=== PATIENT | male | born 1930 | race Caucasian/White ===

== ENCOUNTER 2018-01-13 12:19 | Inpatient (IN) | payer OTHER, MEDICAID, MEDICARE ==
[~2018-01-13] VITALS: Ht 167.6 cm; Wt 71.2 kg
[~2018-01-13 12:19] MED LIST: DUONSOL2 NEB; LISI-363 PO; SIMV40TA PO
[2018-01-13 12:28] VITALS: BP 124/58; PULSE 85; RESP 16; TEMP 98.5; O2SAT 96
[2018-01-13] MEDS ORDERED: SODIUM CHLOR 0.9% 1000 ML INJ 1,000 ML IV ONE (12:30)
[2018-01-13] MEDS ORDERED: PIPERACIL-TAZO 4.5 GM PREMIX 100 ML IV ONE (12:30)
[2018-01-13] MEDS ORDERED: VANCOMYCIN INJ 1,000 MG in SODIUM CHLOR 0.9% 250 ML INJ 250 ML IV ONE (12:30)
[2018-01-13] MEDS ORDERED: SIMV40TA PO (12:34)
[2018-01-13] MEDS ORDERED: IPRAAER INH (12:34)
[2018-01-13] MEDS ORDERED: LISI-515 PO (12:34)
--- NOTE | 2018-01-13 12:36 | PD ---
HPI Chief Complaint: Wound/Suture/Staple Re-Check Time Seen by Provider: 12:29 Travel History International Travel<30 days: No Contact w/Intl Traveler<30days: No Traveled to known affect area: No History of Present Illness HPI The patient is a 87-year-old male who presents to the emergency department via EMS for an infected surgical wound. The patient has a history of squamous cell carcinoma and has had previous surgeries on the right side of the face. The patient states his last surgery was over one year ago, states he had surgery performed by Dr. Titus. The patient states he is not currently undergoing chemotherapy or radiation therapy. Apparently home health wound care nurse evaluated the ear, now notes it is draining and sent him to the emergency department for possible infection. The patient is unsure if the wound has been draining for station amount of time or if the drainage is new. He denies any fever. 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 Symptoms are moderate. PFSH Past Medical History Blood Disorders: No Cancer: Yes (SKIN) Cardiovascular Problems: Yes High Cholesterol: Yes COPD: Yes Cerebrovascular Accident: No Diabetes: No Endocrine: No GERD: No Genitourinary: No Hepatitis: No Hiatal Hernia: No Hypertension: Yes Immune Disorder: No Musculoskeletal: No Neurologic: No Psychiatric: No Reproductive: No Respiratory: Yes (COPD) Myocardial Infarction: No Seizures: No Thyroid Disease: No Past Surgical History Abdominal Surgery: No Cardiac Surgery: No Ear Surgery: No Endocrine Surgery: No Eye Surgery: Yes (L CATARACT) Genitourinary Surgery: No Gynecologic Surgery: No Joint Replacement: No Neurologic Surgery: No Oral Surgery: Yes (right lower lip tumor removal, SKIN CANCER) Pacemaker: No Thoracic Surgery: No Other Surgery: Yes Social History Alcohol Use: No Tobacco Use: Yes (2/3 ppd) Substance Use: No Allergies-Medications (Allergen,Severity, Reaction): Coded Allergies: No Known Allergies (Verified , 07/08/15) Reported Meds & Prescriptions Reported Meds & Active Scripts Active Reported Combivent Respimat Inh (Ipratropium-Albuterol Inh) 20-100 Correction/Act Aero 1 Puff INH QID Simvastatin 40 Mg Tab 40 Mg PO HS Lisinopril 20 Mg Tab 20 Mg PO DAILY Review of Systems Except as stated in HPI: all other systems reviewed are Neg General / Constitutional: No: Fever HENT: Positive: Headaches Cardiovascular: No: Chest Pain or Discomfort Respiratory: No: Shortness of Breath Gastrointestinal: No: Nausea, Vomiting, Abdominal Pain Musculoskeletal: No: Myalgias, Arthralgias Physical Exam Narrative GENERAL: Awake, alert, 87-year-old male who appears his stated age and is in no acute respiratory distress. SKIN: Skin changes noted over the right eye as well as over the right temporal parietal area and right ear with significant yellow drainage from the open right ear wound. HEAD: Visible changes from previous scar and surgery affecting the right ear and right periorbital area.. EYES: Left pupil is 4 mm and reactive. Right eye has gross overlying the affected area. ENT: Surgical changes noted to the right side of face and mouth. NECK: Trachea midline. No JVD. CARDIOVASCULAR: Regular rate and rhythm. No murmur appreciated. RESPIRATORY: No accessory muscle use. Clear to auscultation. Breath sounds equal bilaterally. GASTROINTESTINAL: Abdomen soft, non-tender, nondistended. No rebound tenderness. MUSCULOSKELETAL: No obvious deformities. No clubbing. No cyanosis. No edema. NEUROLOGICAL: Awake and alert. No obvious cranial nerve deficits. Motor grossly within normal limits. Normal speech. PSYCHIATRIC: Appropriate mood and affect; insight and judgment normal. Data Data Last Documented VS Vital Signs Date Time Temp Pulse Resp B/P (MAP) Pulse Ox O2 Delivery O2 Flow Rate FiO2 01/13/18 14:24 98.0 72 16 152/71 (98) 99 Orders Orders Complete Blood Count With Diff (01/13/18 12:29) Comprehensive Metabolic Panel (01/13/18 12:29) Westergren Sedimentation Rate (01/13/18 12:29) C-Reactive Protein (Crp) (01/13/18 12:29) Blood Culture (01/13/18 12:29) Lactic Acid (01/13/18 12:29) Sodium Chlor 0.9% 1000 Ml Inj (Ns 1000 M (01/13/18 12:30) Vancomycin Inj (Vancomycin Inj) (01/13/18 12:30) Piperacil-Tazo 4.5 Gm Premix (Zosyn 4.5 (01/13/18 12:30) Ct Brain W/O Iv Contrast(Rout) (01/13/18 ) Admit Order (Ed Use Only) (2/18/18 14:59) Labs Laboratory Tests Test 01/13/18 12:30 White Blood Count 9.7 TH/MM3 Red Blood Count 3.35 MIL/MM3 Hemoglobin 10.3 GM/DL Hematocrit 30.5 % Mean Corpuscular Volume 91.2 FL Mean Corpuscular Hemoglobin 30.7 PG Mean Corpuscular Hemoglobin Concent 33.6 % Red Cell Distribution Width 13.6 % Platelet Count 435 TH/MM3 Mean Platelet Volume 7.5 FL Neutrophils (%) (Auto) 80.5 % Lymphocytes (%) (Auto) 11.0 % Monocytes (%) (Auto) 7.8 % Eosinophils (%) (Auto) 0.4 % Basophils (%) (Auto) 0.3 % Neutrophils # (Auto) 7.8 TH/MM3 Lymphocytes # (Auto) 1.1 TH/MM3 Monocytes # (Auto) 0.8 TH/MM3 Eosinophils # (Auto) 0.0 TH/MM3 Basophils # (Auto) 0.0 TH/MM3 CBC Comment DIFF FINAL Differential Comment Erythrocyte Sedimentation Rate GREATER THAN 140 mm/hr Blood Urea Nitrogen 27 MG/DL Creatinine 2.39 MG/DL Random Glucose 103 MG/DL Total Protein 7.8 GM/DL Albumin 2.4 GM/DL Calcium Level 8.8 MG/DL Alkaline Phosphatase 101 U/L Aspartate Amino Transf (AST/SGOT) 17 U/L Alanine Aminotransferase (ALT/SGPT) 21 U/L Total Bilirubin 0.5 MG/DL Sodium Level 141 MEQ/L Potassium Level 3.9 MEQ/L Chloride Level 111 MEQ/L Carbon Dioxide Level 21.6 MEQ/L Anion Gap 8 MEQ/L Estimat Glomerular Filtration Rate 26 ML/MIN Lactic Acid Level 1.3 mmol/L C-Reactive Protein 14.00 MG/DL [facility] Medical Decision Making Medical Screen Exam Complete: Yes Emergency Medical Condition: Yes Medical Record Reviewed: Yes Interpretation(s) Laboratory Tests Test 01/13/18 12:30 White Blood Count 9.7 TH/MM3 Red Blood Count 3.35 MIL/MM3 Hemoglobin 10.3 GM/DL Hematocrit 30.5 % Mean Corpuscular Volume 91.2 FL Mean Corpuscular Hemoglobin 30.7 PG Mean Corpuscular Hemoglobin Concent 33.6 % Red Cell Distribution Width 13.6 % Platelet Count 435 TH/MM3 Mean Platelet Volume 7.5 FL Neutrophils (%) (Auto) 80.5 % Lymphocytes (%) (Auto) 11.0 % Monocytes (%) (Auto) 7.8 % Eosinophils (%) (Auto) 0.4 % Basophils (%) (Auto) 0.3 % Neutrophils # (Auto) 7.8 TH/MM3 Lymphocytes # (Auto) 1.1 TH/MM3 Monocytes # (Auto) 0.8 TH/MM3 Eosinophils # (Auto) 0.0 TH/MM3 Basophils # (Auto) 0.0 TH/MM3 CBC Comment DIFF FINAL Differential Comment Erythrocyte Sedimentation Rate GREATER THAN 140 mm/hr Blood Urea Nitrogen 27 MG/DL Creatinine 2.39 MG/DL Random Glucose 103 MG/DL Total Protein 7.8 GM/DL Albumin 2.4 GM/DL Calcium Level 8.8 MG/DL Alkaline Phosphatase 101 U/L Aspartate Amino Transf (AST/SGOT) 17 U/L Alanine Aminotransferase (ALT/SGPT) 21 U/L Total Bilirubin 0.5 MG/DL Sodium Level 141 MEQ/L Potassium Level 3.9 MEQ/L Chloride Level 111 MEQ/L Carbon Dioxide Level 21.6 MEQ/L Anion Gap 8 MEQ/L Estimat Glomerular Filtration Rate 26 ML/MIN Lactic Acid Level 1.3 mmol/L C-Reactive Protein 14.00 MG/DL Differential Diagnosis Differential diagnosis includes advanced squamous cell carcinoma, osteomyelitis , mastoiditis, cellulitis, infected wound. Narrative Course IV was established, labs are drawn and sent, and the patient was placed on cardiac telemetry monitoring and continuous pulse oximetry monitoring. CT of the brain was ordered to evaluate for possible osteomyelitis the right parietal temporal bones. The patient was administered vancomycin and Zosyn. Lactic acid blood culture were sent to lab. White count is unremarkable. Sedimentation rate greater than 140. CRP is 14. Unsure if the patient has metastasis to the bone versus ostomy colitis with secondary infection. The patient was unable to lie supine secondary to shortness of breath from COPD. The patient has been evaluated by the physician at [employer] as well as clinical reimbursement specialist, both who recommended he come the emergency department for further evaluation. The patient has not had radiation therapy to the affected area. The patient may benefit from plastic surgery evaluation as well as radiation therapy for the patient squamous cell carcinoma possible underlying infection. The [facility] [employer] Physician Communication [facility]. I discussed the patient Dr. Gregg who agrees with admission. Diagnosis Primary Impression: Infected wound Additional Impression: Squamous cell carcinoma of skin of cheek Admitting Information Admitting Physician Requests: Admit Condition: Stable Gerardo Villar MD Jan 13, 2018 12:36
[2018-01-13 12:54] LABS: AUTOMATED NEUTROPHIL # 7.8 TH/MM3 (1.8-7.7); BASOPHIL % 0.3 % (0.0-2.0); EOSINOPHIL % 0.4 % (0.0-4.0); HEMATOCRIT 30.5 % (39.0-51.0); HEMOGLOBIN 10.3 GM/DL (13.0-17.0); LYMPHOCYTE # 1.1 TH/MM3 (1.0-4.8); MEAN CELL VOLUME 91.2 FL (80.0-100.0); MEAN CORPUSCULAR HEMOGLOBIN 30.7 PG (27.0-34.0); MEAN CORPUSCULAR HGB CONC 33.6 % (32.0-36.0); MEAN PLATELET VOLUME 7.5 FL (7.0-11.0); MONO % 7.8 % (0.0-8.0); MONOCYTE # 0.8 TH/MM3 (0-0.9); NEUT % 80.5 % (16.0-70.0); PLATELET COUNT 435 TH/MM3 (150-450); RED BLOOD COUNT 3.35 MIL/MM3 (4.50-5.90); RED CELL DISTRIBUTION WIDTH 13.6 % (11.6-17.2); WHITE BLOOD COUNT 9.7 TH/MM3 (4.0-11.0)
[2018-01-13 13:16] LABS: ALBUMIN 2.4 GM/DL (3.4-5.0); AST (GOT) 17 U/L (15-37); BICARBONATE 21.6 MEQ/L (21.0-32.0); BLOOD UREA NITROGEN 27 MG/DL (7-18); CALCIUM 8.8 MG/DL (8.5-10.1); CHLORIDE 111 MEQ/L (98-107); CREATININE 2.39 MG/DL (0.60-1.30); GLOMERULAR FILTRATION RATE 26 ML/MIN (>89); GLUCOSE,RANDOM 103 MG/DL (74-106); SODIUM (NA) 141 MEQ/L (136-145)
[2018-01-13 13:17] LABS: ALT (GPT) 21 U/L (12-78)
[2018-01-13 13:19] LABS: ALKALINE PHOSPHATASE 101 U/L (45-117); TOTAL BILIRUBIN ADULT 0.5 MG/DL (0.2-1.0); TOTAL PROTEIN 7.8 GM/DL (6.4-8.2)
[2018-01-13 14:24] VITALS: BP 152/71; PULSE 72; RESP 16; TEMP 98; O2SAT 99
--- NOTE | 2018-01-13 15:12 | HHI.HP ---
[facility] Unknown Admission Diagnosis Infected wound with dehiscence of right ear, rule out osteomyelitis Diagnoses: Travel History International Travel<30 Days: No Contact w/Intl Traveler <30 Da: No Traveled to Known Affected Are: No History of Present Illness The patient is a pleasant 87 year old male with a history of basal cell carcinoma of the face who presented to the ER as recommended by his PCP at the [place] for evaluation of right ear wound with dehiscence. He is somewhat of a poor historian in recalling the history of his skin cancer but states that several years ago he had 2-[address] Darnell for facial reconstruction after excising a basal cell that involved his right eye and part of his nose and mouth. He states shortly after he had a biopsy of a lesion on his right ear that ended up being basal cell again but he never followed up. It is unclear when it progressed and spread but he has been receiving wound care at home twice weekly for it. Per the patient, he sees his PCP every three months and states he has never been treated for any infection of his ear. He doesn't recall his ear ever being addressed yet he was getting wound care for it. He denies any subjective fever, chills, headaches, neck pain or stiffness, hoarseness, or discomfort. He is hard of hearing at baseline and is blind out of his right eye due to prior cancer. *Of note, patient kept referring to it as basal cell but review of EMR reveals that in the past his prior biopsy showed invasive poorly differentiated squamous cell carcinoma Review of Systems Constitutional: DENIES: Fatigue, Fever, Chills, Dizziness Eyes: COMPLAINS OF: Vision loss (R eye), DENIES: Blurred vision, Diplopia, Eye pain, Photosensitivity Ears, nose, mouth, throat: DENIES: Vertigo, Nasal discharge, Throat pain, Ear Pain, Epistaxis, Sinus Pain Respiratory: COMPLAINS OF: Cough, Wheezing, Shortness of breath, DENIES: Hemoptysis Cardiovascular: DENIES: Chest pain, Palpitations, Syncope Gastrointestinal: DENIES: Abdominal pain, Black stools, Bloody stools, Diarrhea , Nausea, Vomiting Genitourinary: DENIES: Dysuria Musculoskeletal: DENIES: Back pain, Neck pain Integumentary: DENIES: Pruritus Hematologic/lymphatic: DENIES: Bruising Neurologic: DENIES: Headache, Paresthesias, Speech Problems Psychiatric: DENIES: Anxiety, Confusion Past Family Social History Past Medical History COPD HLD HTN Aortic aneurysm Past Surgical History Right facial squamous cell carcinoma excision with facial reconstruction 2013 Unknown abdominal surgery as a [age] year old Reported Medications Combivent Respimat Inh (Ipratropium-Albuterol Inh) 20-100 Penitentiary/Act Aero 1 Puff INH QID Simvastatin 40 Mg Tab 40 Mg PO HS Lisinopril 20 Mg Tab 20 Mg PO DAILY Allergies: Coded Allergies: No Known Allergies (Verified Allergy, Unknown, 01/13/18) Active Ordered Medications Albuterol Sulfate (Proair Hfa Inh) 2 puff QID INH; Start 01/13/18 at 18:00 Bisacodyl (Dulcolax Supp) 10 mg DAILY PRN RECTAL; Start 01/13/18 at 15:30 Heparin Sodium (Porcine) (Heparin Inj) 5,000 units Q12H SQ; Start 01/13/18 at 15 :30; Status UNV Lisinopril (Prinivil) 20 mg DAILY PO; Start 01/14/18 at 09:00 Magnesium Hydroxide (Milk Of Magnlakhwinder Liq) 30 ml Q12H PRN PO; Start 01/13/18 at 15:30; Status UNV Naloxone HCl (Narcan Inj) 0.4 mg UNSCH PRN IV PUSH; Start 01/13/18 at 15:30; Status UNV Piperacillin Sod/ Tazobactam Sod 100 ml @ 200 mls/hr ONCE ONCE IV Last administered on 01/13/18at 12:34; Admin Dose 200 MLS/HR; Start 01/13/18 at 12:30 ; Stop 01/13/18 at 12:59; Status DC Pravastatin Sodium (Pravachol) 80 mg HS PO; Start 01/13/18 at 21:00 Senna/Docusate Sodium (Rubi-Colace) 1 tab BID PO; Start 01/13/18 at 21:00 Sennosides (Senokot) 17.2 mg Q12H PRN PO; Start 01/13/18 at 15:30; Status UNV Sodium Chloride 1,000 ml @ 999 mls/hr BOLUS ONCE IV Last administered on at 12:34; Admin Dose 999 MLS/HR; Start 01/13/18 at 12:30; Stop 01/13/18 at 13: 30; Status DC Sodium Chloride (NS Flush) 2 ml BID IV FLUSH; Start 01/13/18 at 21:00; Status UNV Sodium Chloride (NS Flush) 2 ml UNSCH PRN IV FLUSH; Start 01/13/18 at 15:30; Status UNV Tiotropium Austin (Spiriva Inh) 18 mcg DAILY INH; Start 01/13/18 at 15:45 Vancomycin HCl 1000 mg/Sodium Chloride 250 ml @ 250 mls/hr ONCE ONCE IV Last administered on 01/13/18at 13:29; Admin Dose 250 MLS/HR; Start 01/13/18 at 12:30 ; Stop 01/13/18 at 13:29; Status DC Family History Noncontributory Social History Lives alone Was in the army EtOH: denies Tobacco: quit 4-5 years ago, prior smoked 1PPD x 60 years Illicit drugs: denies Physical Exam Vital Signs Vital Signs Date Time Temp Pulse Resp B/P (MAP) Pulse Ox O2 Delivery O2 Flow Rate FiO2 01/13/18 14:24 98.0 72 16 152/71 (98) 99 01/13/18 12:28 98.5 85 16 124/58 (80) 96 Physical Exam GENERAL: Well-nourished, well-developed pleasant elderly male sitting up in bed in no acute distress. SKIN: Solar keratosis over chest with multiple lentigines over extremities, chest, and back. Multiple seborrheic keratoses over back. HEENT: Significant seborrhea of scalp and face. Deformed right half of his face due to prior surgeries. Large, pedunculated fleshy mass overlying right orbit. Part of nose and mouth surgically absent. Right ear grossly deformed and dehisced with foul-smelling exudate coming from the tympanic canal. Left pupil pinpoint and reactive with normal extraocular movements. No scleral icterus. No injection or drainage. Nose without bleeding, purulent drainage or septal hematoma. Throat without erythema, tonsillar hypertrophy or exudate. Airway patent. NECK: Small posterior auricular and submandibular lymphadenopathy. No JVD. CARDIOVASCULAR: Regular rate and rhythm without murmurs, gallops, or rubs. RESPIRATORY: Clear to auscultation. Breath sounds equal bilaterally. No wheezes , rales, or rhonchi. GASTROINTESTINAL: Abdomen soft, non-tender, nondistended. No hepatosplenomegaly or palpable masses. No guarding or rebound. MUSCULOSKELETAL: Extremities without clubbing, cyanosis, or edema. No joint tenderness, effusion, or edema noted. No calf tenderness. Negative Homans sign bilaterally. NEUROLOGICAL: Awake and alert. Motor and sensory grossly within normal limits. Five out of 5 muscle strength in all muscle groups. Normal speech. PSYCHIATRIC: Appropriate mood and affect. Laboratory Laboratory Tests Test 01/13/18 12:30 White Blood Count 9.7 Red Blood Count 3.35 Hemoglobin 10.3 Hematocrit 30.5 Mean Corpuscular Volume 91.2 Mean Corpuscular Hemoglobin 30.7 Mean Corpuscular Hemoglobin Concent 33.6 Red Cell Distribution Width 13.6 Platelet Count 435 Mean Platelet Volume 7.5 Neutrophils (%) (Auto) 80.5 Lymphocytes (%) (Auto) 11.0 Monocytes (%) (Auto) 7.8 Eosinophils (%) (Auto) 0.4 Basophils (%) (Auto) 0.3 Neutrophils # (Auto) 7.8 Lymphocytes # (Auto) 1.1 Monocytes # (Auto) 0.8 Eosinophils # (Auto) 0.0 Basophils # (Auto) 0.0 CBC Comment DIFF FINAL Differential Comment Erythrocyte Sedimentation Rate GREATER THAN 140 Blood Urea Nitrogen 27 Creatinine 2.39 Random Glucose 103 Total Protein 7.8 Albumin 2.4 Calcium Level 8.8 Alkaline Phosphatase 101 Aspartate Amino Transf (AST/SGOT) 17 Alanine Aminotransferase (ALT/SGPT) 21 Total Bilirubin 0.5 Sodium Level 141 Potassium Level 3.9 Chloride Level 111 Carbon Dioxide Level 21.6 Anion Gap 8 Estimat Glomerular Filtration Rate 26 Lactic Acid Level 1.3 C-Reactive Protein 14.00 Date/Time Source Procedure Growth Status 01/13/18 12:35 Blood Peripheral Aerobic Blood Culture Pending Received 01/13/18 12:35 Blood Peripheral Anaerobic Blood Culture Pending Received Result Diagram: 01/13/18 1230 01/13/18 1230 Caprini VTE Risk Assessment Caprini VTE Risk Assessment: Mod/High Risk (score >= 2) Caprini Risk Assessment Model Point Value = 1 Point Value = 2 Point Value = 3 Point Value = 5 Age 41-60 Minor surgery BMI > 25 kg/m2 Swollen legs Varicose veins or History of unexplained or recurrent spontaneous Oral contraceptives or hormone replacement Sepsis (< 1 month) Serious lung disease, including pneumonia (< 1 month) Abnormal pulmonary function Acute myocardial infarction Congestive heart failure (< 1 month) History of inflammatory bowel disease Medical patient at bed rest Age 61-74 Arthroscopic surgery Major open surgery (> 45 min) Laparoscopic surgery (> 45 min) Malignancy Confined to bed (> 72 hours) Immobilizing plaster cast Central venous access Age >= 75 History of VTE Family history of VTE Factor V Leiden Prothrombin [id number] Lupus anticoagulant Anticardiolipin antibodies Elevated serum homocysteine Heparin-induced thrombocytopenia Other congenital or acquired thrombophilia Stroke (< 1 month) Elective arthroplasty Hip, pelvis, or leg fracture Acute spinal cord injury (< 1 month) Prophylaxis Regimen Total Risk Factor Score Risk Level Prophylaxis Regimen 0-1 Low Early ambulation 2 Moderate Order ONE of the following: *Sequential Compression Device (SCD) *Heparin 5000 units SQ BID 3-4 Higher Order ONE of the following medications: *Heparin 5000 units SQ TID *Enoxaparin/Lovenox 40 mg SQ daily (WT < 150 kg, CrCl > 30 mL/min) *Enoxaparin/Lovenox 30 mg SQ daily (WT < 150 kg, CrCl > 10-29 mL/min) *Enoxaparin/Lovenox 30 mg SQ BID (WT < 150 kg, CrCl > 30 mL/min) AND/OR *Sequential Compression Device (SCD) 5 or more Highest Order ONE of the following medications: *Heparin 5000 units SQ TID (Preferred with Epidurals) *Enoxaparin/Lovenox 40 mg SQ daily (WT < 150 kg, CrCl > 30 mL/min) *Enoxaparin/Lovenox 30 mg SQ daily (WT < 150 kg, CrCl > 10-29 mL/min) *Enoxaparin/Lovenox 30 mg SQ BID (WT < 150 kg, CrCl > 30 mL/min) AND *Sequential Compression Device (SCD) Assessment and Plan Problem List: (1) Infection of right ear ICD Code: H66.91 - Otitis media, unspecified, right ear (2) Necrosis of right external ear ICD Code: I96 - Gangrene, not elsewhere classified (3) Chronic kidney disease ICD Code: N18.9 - Chronic kidney disease, unspecified Status: Chronic (4) Anemia ICD Code: D64.9 - Anemia, unspecified Assessment and Plan 87 year old male with presenting with right ear wound with necrosis and dehiscence suspected to be from underlying invasive skin cancer. Infection of right ear with necrosis Likely secondary to invasive skin cancer that has been untreated for years Concern for merna involvement and possible osteomyelitis given purulent, foul- smelling drainage CT head attempted but patient with significant dyspnea when supine due to COPD ( even with supplemental oxygen) ESR markedly elevated >140 and CRP 14 No leukocytosis and not septic IV Vanc and Zosyn x 1 given in the ED Since this is likely a chronic process and the patient is currently stable, will hold off on continuing antibiotics if further tissue collection needs to be done, i.e. bone debridement Wound and blood cultures drawn Monitor sed rate Consult plastic surgery and infectious disease COPD Not in acute exacerbation Supplemental O2 PRN Resume home Symbicort HTN Hold home Lisinopril secondary to renal disease Clonidine PRN Monitor pressures - if necessary can add a CCB CKD Baseline creatinine ~1.5 but that was back in 2013 so unsure if this is progressing chronic or acute on chronic Avoid nephrotoxic agents Monitor renal function Anemia Normocytic, no active bleeding and hemodynamically stable Likely secondary to CKD Check iron studies Monitor CBC HLD Resume home statin DVT prophylaxis Heparin 5000 units Q8H Hold if invasive procedure anticipated FEN Regular diet Monitor electrolytes Code Status DNR Discussed Condition With Dr. Villar and patient Physician Certification 2 Midnight Certification Type: Admission for Inpatient Services Order for Inpatient Services The services are ordered in accordance with Medicare regulations or non- Medicare payer requirements, as applicable. In the case of services not specified as inpatient-only, they are appropriately provided as inpatient services in accordance with the 2-midnight benchmark. Estimated LOS (days): 4 4 days is the estimated time the patient will need to remain in the hospital, assuming treatment plan goals are met and no additional complications. Post-Hospital Plan: Not yet determined Problem Qualifiers (1) Anemia: Qualified Codes: D64.9 - Anemia, unspecified Tahira Gregg MD Jan 13, 2018 15:12
[2018-01-13] MEDS ORDERED: SODIUM CHLORIDE 0.9% FLUSH 10 ML FLUSH IV FLUSH PRN (15:30)
[2018-01-13] MEDS ORDERED: NALOXONE HCL 0.4 MG/ML AMP IV PUSH PRN (15:30)
[2018-01-13] MEDS ORDERED: SENNOSIDES 8.6 MG TAB PO PRN (15:30)
[2018-01-13] MEDS ORDERED: MAGNESIUM HYDROXIDE SUSP 30 ML CUP PO PRN (15:30)
[2018-01-13] MEDS ORDERED: BISACODYL 10 MG SUPP RECTAL PRN (15:30)
[2018-01-13 15:51] VITALS: BP 148/81; TEMP 97.8
[2018-01-13] MEDS ORDERED: ONDANSETRON HCL 4 MG/2 ML VIAL IV PUSH PRN (16:15)
[2018-01-13] MEDS ORDERED: ACETAMINOPHEN 325 MG TAB PO PRN (16:15)
[2018-01-13] MEDS ORDERED: cloNIDine HCL 0.1 MG TAB PO PRN (16:15)
[2018-01-13 16:30] VITALS: BP 145/65; PULSE 83; RESP 18; TEMP 97.1; O2SAT 96
[2018-01-13] MEDS: ALBUTEROL SULFATE 90 MCG/ACT HFA 8 GM INHALER INH SCH ×2 (17:22→21:31)
[2018-01-13] MEDS: TIOTROPIUM BROMIDE 18 MCG INH INH SCH (17:22)
[2018-01-13 20:00] VITALS: BP 138/69; PULSE 87; RESP 20; TEMP 96.8; O2SAT 95
[2018-01-13] MEDS ORDERED: HEPARIN SODIUM - SQ 10,000 UNITS/ML VIAL SQ SCH (21:00)
[2018-01-13] MEDS: PRAVASTATIN SOD 80 MG TAB PO SCH (21:30)
[2018-01-13] MEDS: SODIUM CHLORIDE 0.9% FLUSH 10 ML FLUSH IV FLUSH SCH (21:31)
[2018-01-13] MEDS: DOCUSATE SODIUM 50 MG/SENNA 8.6 MG TAB PO SCH (21:31)
[2018-01-13] MEDS: HEPARIN SODIUM - SQ 10,000 UNITS/ML VIAL SQ SCH (21:37)
[2018-01-14] VITALS: BP 134/69; PULSE 80; RESP 20; TEMP 97.5; O2SAT 96
[2018-01-14] MEDS: HEPARIN SODIUM - SQ 10,000 UNITS/ML VIAL SQ SCH ×3 (05:43→22:00)
[2018-01-14 08:00] VITALS: BP 143/73; PULSE 81; RESP 19; TEMP 95.9; O2SAT 98
[2018-01-14] MEDS ORDERED: LISINOPRIL 20 MG TAB PO SCH (09:00)
[2018-01-14] MEDS: DOCUSATE SODIUM 50 MG/SENNA 8.6 MG TAB PO SCH ×2 (09:00→21:00)
[2018-01-14] MEDS: SODIUM CHLORIDE 0.9% FLUSH 10 ML FLUSH IV FLUSH SCH (09:00)
[2018-01-14] MEDS: ALBUTEROL SULFATE 90 MCG/ACT HFA 8 GM INHALER INH SCH ×3 (09:00→17:09)
[2018-01-14] MEDS: TIOTROPIUM BROMIDE 18 MCG INH INH SCH (09:00)
--- NOTE | 2018-01-14 09:09 | HHI.PR ---
Subjective Remarks Pt seen and examined this morning. AFVSS. No acute events overnight. Reports he is feeling well. Denies any pain. Breathing is at his baseline. Refuses to lay flat for imaging and apologizes for it but states he cannot breathe when supine. Feels hungry and wants to eat breakfast. No CP, N/V. Objective Vitals Vital Signs Date Time Temp Pulse Resp B/P (MAP) Pulse Ox O2 Delivery O2 Flow Rate FiO2 01/14/18 08:00 95.9 81 19 143/73 (96) 98 01/14/18 00:00 97.5 80 20 134/69 (90) 96 01/13/18 20:00 96.8 87 20 138/69 (92) 95 01/13/18 16:30 97.1 83 18 145/65 (91) 96 01/13/18 15:51 97.8 76 17 148/81 (103) 98 01/13/18 14:24 98.0 72 16 152/71 (98) 99 01/13/18 12:28 98.5 85 16 124/58 (80) 96 I/O 01/13/18 01/13/18 01/13/18 01/14/18 01/14/18 01/14/18 07:00 15:00 23:00 07:00 15:00 23:00 Intake Total 1350 ml 500 ml Output Total 200 ml 2600 ml Balance 1350 ml -200 ml -2100 ml Intake Oral 500 ml IV Total 1350 ml Output Urine Total 200 ml 2600 ml Result Diagram: 01/13/18 1230 01/13/18 1230 Objective Remarks GENERAL: WN, WD male sitting up comfortably in bed in [facility]. SKIN: Warm and dry. HEENT: Significant seborrhea of scalp and face. Deformed right half of his face due to prior surgeries. Large, pedunculated fleshy mass overlying right orbit. Part of nose and mouth surgically absent. Right ear grossly deformed and dehisced with foul-smelling exudate coming from the tympanic canal. No scleral icterus. No injection or drainage. Nose without bleeding, purulent drainage or septal hematoma. NECK: Supple no tender LAD or JVD. HEART: RRR no m/r/g. LUNGS: CTAB without wheezes or crackles. ABDOMEN: Soft, NT, ND. EXTREMITIES: No LE edema or calf tenderness. NEURO: Awake and alert. PSYCH: Appropriate mood and affect. A/P Problem List: (1) Infection of right ear ICD Code: H66.91 - Otitis media, unspecified, right ear (2) Necrosis of right external ear ICD Code: I96 - Gangrene, not elsewhere classified (3) Chronic kidney disease ICD Code: N18.9 - Chronic kidney disease, unspecified Status: Chronic (4) Anemia ICD Code: D64.9 - Anemia, unspecified Assessment and Plan 87 year old male with presenting with right ear wound with necrosis and dehiscence suspected to be from underlying invasive skin cancer. Infection of right ear with necrosis Likely secondary to invasive skin cancer that has been untreated for years Concern for merna involvement and possible osteomyelitis given purulent, foul- smelling drainage and proximity to mastoid, ossicles, etc. CT head attempted but patient with significant dyspnea when supine due to COPD ( even with supplemental oxygen) ESR markedly elevated >140 and CRP 14 No leukocytosis and not septic IV Vanc and Zosyn x 1 given in the ED Since this is likely a chronic process and the patient is currently stable, will hold off on continuing antibiotics if further tissue collection needs to be done prior, i.e. bone debridement Wound and blood cultures pending Monitor sed rate Consulted plastic surgery and infectious disease, will follow recommendations COPD Not in acute exacerbation Supplemental O2 PRN Resume home Symbicort DuoNeb PRN HTN Hold home Lisinopril secondary to renal disease Clonidine PRN Monitor pressures - if necessary can add a CCB CKD Baseline creatinine ~1.5 but that was back in 2013 so unsure if this is progressing chronic or acute on chronic Avoid nephrotoxic agents Monitor renal function Anemia Normocytic, no active bleeding and hemodynamically stable Likely secondary to CKD Iron studies ordered Monitor CBC HLD Resume home statin DVT prophylaxis Heparin 5000 units Q8H Hold if invasive procedure anticipated FEN Regular diet Monitor electrolytes Problem Qualifiers (1) Anemia: Qualified Codes: D64.9 - Anemia, unspecified Tahira Gregg MD Jan 14, 2018 09:09
[2018-01-14] MEDS ORDERED: RESP: ALBUTEROL 2.5 MG/IPRATROPIUM 0.5 MG NEB (PRN) NEB (09:15)
[2018-01-14 12:00] VITALS: BP 141/67; PULSE 81; RESP 19; TEMP 97.1; O2SAT 96
[2018-01-14 13:29] LABS: AUTOMATED NEUTROPHIL # 7.9 TH/MM3 (1.8-7.7); BASOPHIL # 0.1 TH/MM3 (0-0.2); BASOPHIL % 0.7 % (0.0-2.0); EOSINOPHIL # 0.1 TH/MM3 (0-0.4); EOSINOPHIL % 0.8 % (0.0-4.0); HEMATOCRIT 30.4 % (39.0-51.0); HEMOGLOBIN 10.1 GM/DL (13.0-17.0); LYMPH % 12.9 % (9.0-44.0); LYMPHOCYTE # 1.3 TH/MM3 (1.0-4.8); MEAN CELL VOLUME 90.9 FL (80.0-100.0); MEAN CORPUSCULAR HEMOGLOBIN 30.2 PG (27.0-34.0); MEAN CORPUSCULAR HGB CONC 33.2 % (32.0-36.0); MEAN PLATELET VOLUME 7.6 FL (7.0-11.0); MONOCYTE # 0.6 TH/MM3 (0-0.9); NEUT % 79.6 % (16.0-70.0); PLATELET COUNT 476 TH/MM3 (150-450); RED BLOOD COUNT 3.35 MIL/MM3 (4.50-5.90); RED CELL DISTRIBUTION WIDTH 13.5 % (11.6-17.2)
[2018-01-14 14:15] LABS: FERRITIN 703 NG/ML (26-388); TOTAL IRON BINDING CAPACITY 162 MCG/DL (250-450)
[2018-01-14 14:23] LABS: BLOOD UREA NITROGEN 26 MG/DL (7-18); CALCIUM 9.2 MG/DL (8.5-10.1); CHLORIDE 110 MEQ/L (98-107); CREATININE 2.22 MG/DL (0.60-1.30); GLOMERULAR FILTRATION RATE 28 ML/MIN (>89); GLUCOSE,RANDOM 107 MG/DL (74-106); SODIUM (NA) 142 MEQ/L (136-145)
[2018-01-14 14:25] LABS: IRON (FE) 39 MCG/DL (65-175)
--- NOTE | 2018-01-14 14:57 | PD.CONS ---
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 Patient reports that this is a basal cell carcinoma, though patient seems to be a poor historian. Patient reports this is a long- standing wound of his right ear. Past Medical History COPD HLD HTN Aortic aneurysm Past Surgical History Right facial squamous cell carcinoma excision Unknown abdominal surgery as a [age] year old Reported Medications Combivent Respimat Inh (Ipratropium-Albuterol Inh) 20-100 Custodial/Act Aero 1 Puff INH QID Simvastatin 40 Mg Tab 40 Mg PO HS Lisinopril 20 Mg Tab 20 Mg PO DAILY Allergies: Coded Allergies: No Known Allergies (Verified Allergy, Unknown, 01/13/18) Review of Systems Denies lymphadenopathy. Review of systems otherwise noncontributory to presenting complaint Past Family Social History Allergies: Coded Allergies: No Known Allergies (Verified Allergy, Unknown, 01/13/18) Physical Exam Vital Signs Vital Signs Date Time Temp Pulse Resp B/P (MAP) Pulse Ox O2 Delivery O2 Flow Rate FiO2 01/14/18 12:00 97.1 81 19 141/67 (91) 96 01/14/18 08:00 95.9 81 19 143/73 (96) 98 01/14/18 00:00 97.5 80 20 134/69 (90) 96 01/13/18 20:00 96.8 87 20 138/69 (92) 95 01/13/18 16:30 97.1 83 18 145/65 (91) 96 01/13/18 15:51 97.8 76 17 148/81 (103) 98 Physical Exam No acute distress Alert and oriented 3 Moist mucous membranes PERRLA Respirations nonlabored Patient has scars consistent with multiple previous resections involving his right eyelid right commissure and bilateral face. The patient's year has a 10-15 cm ulcerated lesion encompassing the superior two thirds of the auricle with satellite ulcerations inferiorly The patient's entire Rochelle is dangling from a roughly 1 cm ulcerated area inferiorly which appears to be the remnant of the lobule The ulcerated lesion is fixed and nodular and has entirely replaced the conchal bowl and external auditory meatus Laboratory Laboratory Tests Test 01/14/18 12:47 White Blood Count 10.0 Red Blood Count 3.35 Hemoglobin 10.1 Hematocrit 30.4 Mean Corpuscular Volume 90.9 Mean Corpuscular Hemoglobin 30.2 Mean Corpuscular Hemoglobin Concent 33.2 Red Cell Distribution Width 13.5 Platelet Count 476 Mean Platelet Volume 7.6 Neutrophils (%) (Auto) 79.6 Lymphocytes (%) (Auto) 12.9 Monocytes (%) (Auto) 6.0 Eosinophils (%) (Auto) 0.8 Basophils (%) (Auto) 0.7 Neutrophils # (Auto) 7.9 Lymphocytes # (Auto) 1.3 Monocytes # (Auto) 0.6 Eosinophils # (Auto) 0.1 Basophils # (Auto) 0.1 CBC Comment DIFF FINAL Differential Comment Erythrocyte Sedimentation Rate GREATER THAN 140 Blood Urea Nitrogen 26 Creatinine 2.22 Random Glucose 107 Calcium Level 9.2 Sodium Level 142 Potassium Level 4.4 Chloride Level 110 Carbon Dioxide Level 24.0 Anion Gap 8 Estimat Glomerular Filtration Rate 28 Iron Level 39 Total Iron Binding Capacity 162 Percent Iron Saturation 24.0 Ferritin 703 C-Reactive Protein 15.00 Date/Time Source Procedure Growth Status 01/13/18 12:35 Blood Peripheral Aerobic Blood Culture - Preliminary NO GROWTH IN 1 DAY Resulted 01/13/18 12:35 Blood Peripheral Anaerobic Blood Culture - Preliminary NO GROWTH IN 1 DAY Resulted 01/13/18 15:30 Wound Other Gram Stain - Final Resulted 01/13/18 15:30 Wound Other Wound Culture - Preliminary Resulted Result Diagram: 01/14/18 1247 01/14/18 1247 Assessment and Plan Problem List: (1) 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 The patient would benefit from a CT to better delineate the degree of invasion, though by clinical exam, any attempt at resection would likely leave the patient with a very large wound which would exceed the locoregional options for coverage. Unclear if patient is a candidate for resection without further workup, though would recommend considering referral to a head and neck surgeon/ENT for evaluation given the likely invasion of the patient's temporal bone. Ajit Maki MD Jan 14, 2018 14:57
[2018-01-14 16:00] VITALS: BP 131/63; PULSE 82; RESP 19; TEMP 97.6; O2SAT 96
[2018-01-14] MEDS: PIPERACIL-TAZO 2.25 GM PREMIX 50 ML IV SCH ×2 (16:00→22:00)
--- NOTE | 2018-01-14 16:32 | MB ---
cc: [facility] ARIAS,LIZZY Silverman MD DATE OF CONSULTATION 01/14/[address] Arias. 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 Concern for osteomyelitis. Markedly elevated sedimentation rate. Unable to do a CT scan because of severe COPD preventing him from laying flat. HISTORY OF PRESENT ILLNESS This is an 87-year-old white male who presented to the emergency department with a wound on his right ear. 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 He had reconstruction of the right side of the face and skin grafting involving the face and part of the nose. He had to have a second surgery in 2012. The prior surgery was in 2011. The patient states that he saw a magnetic prospecting operator sometime ago who did a biopsy of his right ear. He states that he did not get the results and did not have follow-up arrangements made for the ear. He is a poor historian. When asked why he came to the hospital at this time he states that his right ear was basically falling off and he wanted treatment. He lives alone. It is unclear how long it took for the ear to get to the point that it is currently. The patient cannot tell me when he saw the magnetic prospecting operator or when the biopsy was taken. The patient has some murky exudates in the right ear. The entire right ear canal appears to be obstructed with his right ear and temporal bone is eroded and macerated and the right lobe fleshy part has pulled apart from the main structure of the ear and is basically hanging as if it was ripped off and is connected only by the lower flesh part of the ear. He denies pain in the ear. He is awake but appears chronically ill. PAST MEDICAL HISTORY 1. COPD. 2. Hyperlipidemia. 3. Hypertension. 4. Aortic aneurysm. 5. History of facial reconstruction for squamous cell carcinoma in 2012. ALLERGIES No known drug allergies. MEDICATIONS 1. Pravachol. 2. Spiriva. 3. Albuterol. 4. Rubi-Colace. SOCIAL HISTORY Denies tobacco. Denies alcohol. Denies illicit drugs. The patient lives alone. 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 FAMILY HISTORY Noncontributory. REVIEW OF SYSTEMS GENERAL: Denies fever or chills. HEAD, EYES, EARS, NOSE, AND THROAT: Denies difficulty with vision of the left eye. No icterus. No conjunctival erythema. Oropharynx edentulous, moist mucosa. NECK: Denies pain or swelling. CARDIOVASCULAR: Denies palpitations or chest pain. RESPIRATORY: Denies shortness of breath. GASTROINTESTINAL: Denies nausea, vomiting, abdominal pain or diarrhea. GENITOURINARY: Denies urgency or frequency. HEMAPOIETIC: Denies easy bruising or bleeding. MUSCULOSKELETAL: Denies muscle pain or joint pain. ENDOCRINE: Denies polyuria or polydipsia. NEUROLOGIC: Denies problems with coordination. PSYCHIATRIC: Denies mood changes or depression. PHYSICAL EXAMINATION GENERAL: This is a slender well-developed male who appears chronically ill. He is in no acute distress. He is awake and alert. VITAL SIGNS: Temperature 97.1, BP 141/67, respirations 19, heart rate 81. HEENT: The right ear is macerated and has murky exudate centrally. The lobe of the ear has torn to some degree and pulled apart from the base of the ear. The ear has a fungating appearance. The right eye has a flesh growth versus surgical change from reconstruction causing the right eye not to open. The left eye is intact and the extraocular movements of the left eye are intact. Oropharynx with moist mucosa. NECK: No adenopathy or swelling. LUNGS: Clear to auscultation. HEART: Regular S1, S2, without murmurs, rubs or gallops. ABDOMEN: Bowel sounds present. Mildly distended, soft, no tenderness appreciated. : Normal genitalia. RECTAL: Not performed. EXTREMITIES: No clubbing, cyanosis or edema. SKIN: Warm and dry. NEUROLOGIC: No gross focal findings. PSYCHIATRIC: The patient is calm and cooperative. LABORATORY WBC 10.0, platelets 476, hemoglobin 10.1. Sedimentation rate greater than 140. Creatinine 2.22, estimated GFR 28. C-reactive protein 15. Wound culture is pending. Blood cultures: No growth in 24 hours. IMPRESSION 1. Right ear infection likely with osteomyelitis. Patient with prior surgery of the right cheek, now with fungating wound which likely represents osteomyelitis with erosion into the temporal bone area. 2. Acute kidney disease. 3. 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 The appearance of the changes in the right ear could also be related to the carcinoma extending. RECOMMENDATIONS 1. Begin piperacillin/tazobactam. 2. Monitor wound culture from the right ear. 3. The patient will likely need to have an MRI of the ear and surgery evaluation for possible debridement. I think the MRI may be necessary to determine the extent of debridement that may be needed. I will await surgical evaluation which has been ordered to make decision on the type of study to be done. If we cannot do MRI or CT scan, we may want to do a bone scan to determine whether there is indeed osteomyelitis present. Thank you this consultation. I will follow the patient's progress. Lizzy Mclean MD FD/JOHN /2:39 PM /4:10 PM [email or web address]
[2018-01-14 20:00] VITALS: BP 134/64; PULSE 82; RESP 16; TEMP 96.9; O2SAT 95
[2018-01-14] MEDS: PRAVASTATIN SOD 80 MG TAB PO SCH (21:00)
[2018-01-15] VITALS: BP 130/62; PULSE 84; RESP 16; TEMP 97.7; O2SAT 95
[2018-01-15] MEDS: ALBUTEROL SULFATE 90 MCG/ACT HFA 8 GM INHALER INH SCH ×5 (00:55→20:37)
[2018-01-15] MEDS: SODIUM CHLORIDE 0.9% FLUSH 10 ML FLUSH IV FLUSH SCH ×3 (00:56→20:35)
[2018-01-15] MEDS: PIPERACIL-TAZO 2.25 GM PREMIX 50 ML IV SCH ×2 (04:00→10:00)
[2018-01-15] MEDS: HEPARIN SODIUM - SQ 10,000 UNITS/ML VIAL SQ SCH ×3 (05:04→20:37)
--- NOTE | 2018-01-15 06:57 | PD.CONS ---
History of Present Illness Service ENT Consult Requested By Dr Gregg Reason for Consult Right ear carcinoma Primary Care Physician Unknown Diagnoses: History of Present Illness 87 year old male with history of facial and ear skin malignancy managed by plastic surgery. He had neglected a right ear carcinoma. Possibly basal cell with advanced disease now involving the entire auricle and the surrounding area. He has minimal pain. His hearing is intact. Past Medical History Hypertension COPD Aortic aneurysm Past Surgical History Right facial squamous cell carcinoma excision Review of Systems Ears, nose, mouth, throat: DENIES: Hearing loss, Vertigo, Ear Pain Past Family Social History Allergies: Coded Allergies: No Known Allergies (Verified Allergy, Unknown, 01/13/18) Physical Exam Vital Signs Vital Signs Date Time Temp Pulse Resp B/P (MAP) Pulse Ox O2 Delivery O2 Flow Rate FiO2 01/15/18 00:00 97.7 84 16 130/62 (84) 95 01/14/18 20:00 96.9 82 16 134/64 (87) 95 01/14/18 16:00 97.6 82 19 131/63 (85) 96 01/14/18 12:00 97.1 81 19 141/67 (91) 96 01/14/18 08:00 95.9 81 19 143/73 (96) 98 Physical Exam GENERAL: This is a well-nourished, well-developed patient, in no apparent distress. SKIN: Cool and dry. HEAD: Atraumatic. Normocephalic. No temporal or scalp tenderness. Multiple facial scars. EYES: Right orbital scarring. ENT: Right auricle and external canal with large lesion obliterating normal landmarks. Nose without bleeding, purulent drainage or septal hematoma. Throat without erythema, tonsillar hypertrophy or exudate. Uvula midline. Airway patent. NECK: Trachea midline. No JVD or lymphadenopathy. Supple, nontender, no meningeal signs. NEUROLOGICAL: Awake and alert. Laboratory Laboratory Tests Test 01/14/18 12:47 White Blood Count 10.0 Red Blood Count 3.35 Hemoglobin 10.1 Hematocrit 30.4 Mean Corpuscular Volume 90.9 Mean Corpuscular Hemoglobin 30.2 Mean Corpuscular Hemoglobin Concent 33.2 Red Cell Distribution Width 13.5 Platelet Count 476 Mean Platelet Volume 7.6 Neutrophils (%) (Auto) 79.6 Lymphocytes (%) (Auto) 12.9 Monocytes (%) (Auto) 6.0 Eosinophils (%) (Auto) 0.8 Basophils (%) (Auto) 0.7 Neutrophils # (Auto) 7.9 Lymphocytes # (Auto) 1.3 Monocytes # (Auto) 0.6 Eosinophils # (Auto) 0.1 Basophils # (Auto) 0.1 CBC Comment DIFF FINAL Differential Comment Erythrocyte Sedimentation Rate GREATER THAN 140 Blood Urea Nitrogen 26 Creatinine 2.22 Random Glucose 107 Calcium Level 9.2 Sodium Level 142 Potassium Level 4.4 Chloride Level 110 Carbon Dioxide Level 24.0 Anion Gap 8 Estimat Glomerular Filtration Rate 28 Iron Level 39 Total Iron Binding Capacity 162 Percent Iron Saturation 24.0 Ferritin 703 C-Reactive Protein 15.00 Date/Time Source Procedure Growth Status 01/13/18 12:35 Blood Peripheral Aerobic Blood Culture - Preliminary NO GROWTH IN 1 DAY Resulted 01/13/18 12:35 Blood Peripheral Anaerobic Blood Culture - Preliminary NO GROWTH IN 1 DAY Resulted 01/13/18 15:30 Wound Other Gram Stain - Final Resulted 01/13/18 15:30 Wound Other Wound Culture - Preliminary Resulted Result Diagram: 01/14/18 1247 01/14/18 1247 Assessment and Plan Assessment and Plan 89 year old male with locally advanced right ear carcinoma. This has destroyed the auricle and now involves the external canal. Patient has no vertigo and hearing is intact. A curative procedure in not a reasonable consideration at this point. He would need to go to an academic center for evaluation for a temporal bone resection. In view of his severe COPD it is not clear he could even complete an imaging study for work up to even begin this plan. Recommend you consider palliative therapy. Suggest limited debridement of the detached auricle by plastic surgery and Radiation Oncology evaluation for palliative radiation. The patient does not want to go to an academic center. He will consider palliative Radiation. Unfortunately not much else to offer him. ENT prn. Pacheco Montgomery MD Jan 15, 2018 06:57
[2018-01-15 08:00] VITALS: BP 130/60; PULSE 80; RESP 17; TEMP 96.4; O2SAT 95
[2018-01-15 08:45] LABS: BICARBONATE 24.2 MEQ/L (21.0-32.0); CALCIUM 9.1 MG/DL (8.5-10.1); CREATININE 2.49 MG/DL (0.60-1.30)
[2018-01-15] MEDS: TIOTROPIUM BROMIDE 18 MCG INH INH SCH (09:00)
[2018-01-15] MEDS: DOCUSATE SODIUM 50 MG/SENNA 8.6 MG TAB PO SCH ×2 (09:00→20:34)
--- NOTE | 2018-01-15 09:36 | PD.WCN.NOT ---
Wound Consult Additional Information: Patient not seen, Plastics Doctor Krissy consulted and saw patient. ENT Doctor Valentina also consulted and saw patient. ENT recommends limited debridement by plastics and palliative radiation for patient. Wound care is signing off. Please refer to plastics and ENT orders and recommendations regarding R ear wound management. Elayne Whitmore [facility] Jan 15, 2018 09:36
[2018-01-15 11:38] VITALS: O2SAT 95
--- NOTE | 2018-01-15 11:43 | HHI.PR ---
Subjective Remarks Patient is afebrile. Denies cp/sob. Objective Vitals Vital Signs Date Time Temp Pulse Resp B/P (MAP) Pulse Ox O2 Delivery O2 Flow Rate FiO2 01/15/18 08:00 96.4 80 17 130/60 (83) 95 01/15/18 00:00 97.7 84 16 130/62 (84) 95 01/14/18 20:00 96.9 82 16 134/64 (87) 95 01/14/18 16:00 97.6 82 19 131/63 (85) 96 01/14/18 12:00 97.1 81 19 141/67 (91) 96 I/O 01/14/18 01/14/18 01/14/18 01/15/18 01/15/18 01/15/18 07:00 15:00 23:00 07:00 15:00 23:00 Intake Total 500 ml 0 ml 1010 ml 50 ml 0 ml Output Total 2600 ml 900 ml 400 ml Balance -2100 ml 0 ml 110 ml -350 ml 0 ml Intake Oral 500 ml 960 ml IV Total 0 ml 50 ml 50 ml 0 ml Output Urine Total 2600 ml 900 ml 400 ml # Bowel Movements 0 1 Result Diagram: 01/14/18 1247 01/15/18 0719 Objective Remarks GENERAL: male sitting up comfortably in bed in [facility]. SKIN: Warm and dry. HEENT: Significant seborrhea of scalp and face. Deformed right half of his face due to prior surgeries. Large, pedunculated fleshy mass overlying right orbit. Part of nose and mouth surgically absent. Right ear grossly deformed and dehisced with foul-smelling exudate coming from the tympanic canal. No scleral icterus. No injection or drainage. Nose without bleeding, purulent drainage or septal hematoma. NECK: Supple no tender LAD or JVD. HEART: RRR no m/r/g. LUNGS: CTAB without wheezes or crackles. ABDOMEN: Soft, NT, ND. EXTREMITIES: No LE edema or calf tenderness. NEURO: Awake and alert. PSYCH: Appropriate mood and affect. Medications and IVs Current Medications Medications (Trade) Dose Ordered Sig/Joya Route Start Time Stop Time Status Last Admin (Spiriva Inh) 18 mcg DAILY INH 01/13/18 15:45 01/15/18 09:00 (Pravachol) 80 mg HS PO 01/13/18 21:00 01/14/18 21:00 (NS Flush) 2 ml UNSCH PRN IV FLUSH 01/13/18 15:30 (NS Flush) 2 ml BID IV FLUSH 01/13/18 21:00 01/15/18 09:00 (Narcan Inj) 0.4 mg UNSCH PRN IV PUSH 01/13/18 15:30 (Rubi-Colace) 1 tab BID PO 01/13/18 21:00 01/13/18 21:31 (Milk Of Magnesia Liq) 30 ml Q12H PRN PO 01/13/18 15:30 (Senokot) 17.2 mg Q12H PRN PO 01/13/18 15:30 (Dulcolax Supp) 10 mg DAILY PRN RECTAL 01/13/18 15:30 (Proair Hfa Inh) 2 puff QID INH 01/13/18 18:00 01/15/18 09:00 (Heparin Inj) 5,000 units Q8HR SQ 01/13/18 22:00 01/13/18 21:37 (Catapres) 0.1 mg Q6H PRN PO 01/13/18 16:15 (Tylenol) 650 mg Q4H PRN PO 01/13/18 16:15 (Zofran Inj) 4 mg Q6H PRN IV PUSH 01/13/18 16:15 01/15/18 01:00 (Duoneb Neb) 1 ampule Q6HR NEB PRN NEB 01/14/18 09:15 Piperacillin Sod/ Tazobactam Sod 50 ml @ 100 mls/hr Q6H IV 01/14/18 16:00 01/15/18 04:00 Urinary Catheter: No Vascular Central Line Catheter: No A/P Problem List: (1) Infection of right ear ICD Code: H66.91 - Otitis media, unspecified, right ear (2) Necrosis of right external ear ICD Code: I96 - Gangrene, not elsewhere classified (3) Chronic kidney disease ICD Code: N18.9 - Chronic kidney disease, unspecified Status: Chronic (4) Anemia ICD Code: D64.9 - Anemia, unspecified (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 Infection of right ear with necrosis Likely secondary to invasive skin cancer that has been untreated for years Concern for merna involvement and possible osteomyelitis given purulent, foul- smelling drainage and proximity to mastoid, ossicles, etc. CT head attempted but patient with significant dyspnea when supine due to COPD ( even with supplemental oxygen) ESR markedly elevated >140 and CRP 14 No leukocytosis and not septic IV Vanc and Zosyn x 1 given in the ED 01/15 Sed rate elevated and greater than 140. Consulted. Recommended IV vancomycin and IV Zosyn. Will also order a CT of the right temporal bone. The degree of invasion as per plastic surgery recommendations. Plastic surgery any attempt at resection would likely leave the patient with a very large wound which would exceed the local regional options for coverage. Wound cultures growing Pseudomonas and Proteus. Follow-up sensitivities and ID recommendations. Blood cultures negative 2. ENT consulted. As per ENT accurate the procedure is not a reasonable consideration at this point. The patient would need to go to an academic center for evaluation for temporal bone resection. Palliative therapy and limited debridement of the detached auricle plastic surgery also recommended. Will consult radiation oncology for palliative radiation. Patient refuses to go to an academic center. Will consider palliative radiation. Consult palliative care. Consult radiation oncology. Consult medical oncology. COPD Not in acute exacerbation Supplemental O2 PRN Continue home Symbicort DuoNeb PRN HTN Hold home Lisinopril secondary to renal disease Clonidine PRN Monitor pressures - if necessary can add a CCB CKD Baseline creatinine ~1.5 but that was back in 2013 so unsure if this is progressing chronic or acute on chronic Avoid nephrotoxic agents Monitor renal function Anemia Normocytic, no active bleeding and hemodynamically stable Likely secondary to CKD Iron studies ordered 01/15 iron studies consistent with anemia of chronic disease. Continue to monitor hemoglobin. HLD Resume home statin DVT prophylaxis Heparin 5000 units Q8H Hold if invasive procedure anticipated FEN Regular diet Monitor electrolytes Discharge Planning Continue to monitor on the medical floor. Medical oncology, radiation oncology and palliative care consultations placed. Problem Qualifiers (1) Anemia: Qualified Codes: D64.9 - Anemia, unspecified Danyel Bonner MD Jan 15, 2018 11:43
[2018-01-15 12:00] VITALS: BP 131/61; PULSE 75; RESP 16; TEMP 97; O2SAT 96
--- NOTE | 2018-01-15 13:04 | HHI.IDPN ---
Note Infectious Disease Note Patient says he feels okay. He is refusing the IV Zosyn because he says it is giving him the runs. He denies pain in the R. ear. No fever. RN reports no diarrhea. Wound culture has pseudomonas and proteus. Patient presented to the emergency department with a wound on his right ear. 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 He had reconstruction of the right side of the face and skin grafting involving the face and part of the nose. He had to have a second surgery in 2012. The prior surgery was in 2011. The patient states that he saw a revenue accounting manager sometime ago who did a biopsy of his right ear. He states that he did not get the results and did not have follow-up arrangements made for the ear. He is a poor historian. PAST MEDICAL HISTORY 1. COPD. 2. Hyperlipidemia. 3. Hypertension. 4. Aortic aneurysm. 5. History of facial reconstruction for squamous cell carcinoma in 2012. ALLERGIES No known drug allergies. MEDICATIONS Current Medications Medications (Trade) Dose Ordered Sig/Joya Route PRN Reason Start Time Stop Time Status Last Admin Dose Admin Tiotropium [place] (Spiriva Inh) 18 mcg DAILY INH 01/13/18 15:45 01/15/18 09:00 Pravastatin Sodium (Pravachol) 80 mg HS PO 01/13/18 21:00 01/14/18 21:00 Sodium Chloride (NS Flush) 2 ml UNSCH PRN IV FLUSH FLUSH AFTER USING IV ACCESS 01/13/18 15:30 Sodium Chloride (NS Flush) 2 ml BID IV FLUSH 01/13/18 21:00 01/15/18 09:00 Naloxone HCl (Narcan Inj) 0.4 mg UNSCH PRN IV PUSH SEE LABEL COMMENTS 01/13/18 15:30 Senna/Docusate Sodium (Rubi-Colace) 1 tab BID PO 01/13/18 21:00 01/13/18 21:31 Magnesium Hydroxide (Milk Of Magnesia Liq) 30 ml Q12H PRN PO Mild constipation 01/13/18 15:30 Sennosides (Senokot) 17.2 mg Q12H PRN PO Moderate constipation 01/13/18 15:30 Bisacodyl (Dulcolax Supp) 10 mg DAILY PRN RECTAL SEVERE CONSITIPATION 01/13/18 15:30 Albuterol Sulfate (Proair Hfa Inh) 2 puff QID INH 01/13/18 18:00 01/15/18 09:00 Heparin Sodium (Porcine) (Heparin Inj) 5,000 units Q8HR SQ 01/13/18 22:00 01/13/18 21:37 Clonidine (Catapres) 0.1 mg Q6H PRN PO SBP>180, DBP>100, HR>65 01/13/18 16:15 Acetaminophen (Tylenol) 650 mg Q4H PRN PO Temp > 100.4 or headache 01/13/18 16:15 Ondansetron HCl (Zofran Inj) 4 mg Q6H PRN IV PUSH NAUSEA 01/13/18 16:15 01/15/18 01:00 Albuterol/ Ipratropium (Duoneb Neb) 1 ampule Q6HR NEB PRN NEB SHORTNESS OF BREATH/WHEEZING 01/14/18 09:15 Piperacillin Sod/ Tazobactam Sod 50 ml @ 100 mls/hr Q6H IV 01/14/18 16:00 01/15/18 04:00 OBJECTIVE: Vital Signs Date Time Temp Pulse Resp B/P (MAP) Pulse Ox O2 Delivery O2 Flow Rate FiO2 01/15/18 12:00 97.0 75 16 131/61 (84) 96 01/15/18 11:38 95 01/15/18 08:00 96.4 80 17 130/60 (83) 95 01/15/18 00:00 97.7 84 16 130/62 (84) 95 01/14/18 20:00 96.9 82 16 134/64 (87) 95 01/14/18 16:00 97.6 82 19 131/63 (85) 96 Laboratory Tests Test 01/14/18 12:47 White Blood Count 10.0 TH/MM3 Red Blood Count 3.35 MIL/MM3 Hemoglobin 10.1 GM/DL Hematocrit 30.4 % Mean Corpuscular Volume 90.9 FL Mean Corpuscular Hemoglobin 30.2 PG Mean Corpuscular Hemoglobin Concent 33.2 % Red Cell Distribution Width 13.5 % Platelet Count 476 TH/MM3 Mean Platelet Volume 7.6 FL Neutrophils (%) (Auto) 79.6 % Lymphocytes (%) (Auto) 12.9 % Monocytes (%) (Auto) 6.0 % Eosinophils (%) (Auto) 0.8 % Basophils (%) (Auto) 0.7 % Neutrophils # (Auto) 7.9 TH/MM3 Lymphocytes # (Auto) 1.3 TH/MM3 Monocytes # (Auto) 0.6 TH/MM3 Eosinophils # (Auto) 0.1 TH/MM3 Basophils # (Auto) 0.1 TH/MM3 CBC Comment DIFF FINAL Differential Comment Erythrocyte Sedimentation Rate GREATER THAN 140 mm/hr Laboratory Tests Test 01/14/18 12:47 01/15/18 07:19 Blood Urea Nitrogen 26 MG/DL 30 MG/DL Creatinine 2.22 MG/DL 2.49 MG/DL Random Glucose 107 MG/DL 98 MG/DL Calcium Level 9.2 MG/DL 9.1 MG/DL Sodium Level 142 MEQ/L 144 MEQ/L Potassium Level 4.4 MEQ/L 4.4 MEQ/L Chloride Level 110 MEQ/L 112 MEQ/L Carbon Dioxide Level 24.0 MEQ/L 24.2 MEQ/L Anion Gap 8 MEQ/L 8 MEQ/L Estimat Glomerular Filtration Rate 28 ML/MIN 25 ML/MIN Iron Level 39 MCG/DL Total Iron Binding Capacity 162 MCG/DL Percent Iron Saturation 24.0 % Ferritin 703 NG/ML C-Reactive Protein 15.00 MG/DL Microbiology Date/Time Source Procedure Growth Status 01/13/18 12:35 Blood Peripheral Aerobic Blood Culture - Preliminary NO GROWTH IN 2 DAYS Resulted 01/13/18 12:35 Blood Peripheral Anaerobic Blood Culture - Preliminary NO GROWTH IN 2 DAYS Resulted 01/13/18 12:30 Blood Peripheral Aerobic Blood Culture - Preliminary NO GROWTH IN 2 DAYS Resulted 01/13/18 12:30 Blood Peripheral Anaerobic Blood Culture - Preliminary NO GROWTH IN 2 DAYS Resulted 01/13/18 15:30 Wound Other Gram Stain - Final Resulted 01/13/18 15:30 Wound Culture - Preliminary Pseudomonas Species Proteus Species Resulted PHYSICAL EXAMINATION GENERAL: No acute distress. He is awake and alert and oriented. HEENT: The right ear is macerated and has murky exudate centrally. The lobe of the ear has torn to some degree and pulled apart from the base of the ear. The ear has a fungating appearance. The right eye has a flesh growth versus surgical change from reconstruction causing the right eye not to open. The left eye is intact and the extraocular movements of the left eye are intact. Oropharynx with moist mucosa. NECK: No adenopathy or swelling. LUNGS: Clear to auscultation. HEART: Regular S1, S2, without murmurs, rubs or gallops. ABDOMEN: Bowel sounds present. Mildly distended, soft, no tenderness appreciated. EXTREMITIES: No clubbing, cyanosis or edema. SKIN: Warm and dry. NEUROLOGIC: No gross focal findings. PSYCHIATRIC: Calm and cooperative. IMPRESSION 1. Right ear infection likely with osteomyelitis. Patient with prior surgery of the right cheek, now with fungating wound which likely represents osteomyelitis with erosion into the temporal bone area. Wound culture has pseudomonas and proteus species. 2. Acute kidney disease. 3. 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 The appearance of the changes in the right ear could also be related to the carcinoma extending. RECOMMENDATIONS 1. Change piperacillin/tazobactam to Cefepime 2 grams IV Q 8 hours. I have spoken to patient about the necessity of accepting the antibiotics and risk of spread of infection without treatment. He is agreeable. 2. Monitor wound culture sensitivity from the right ear. 3. The patient will likely need to have an MRI of the ear and surgery evaluation for possible debridement. I think the MRI may be necessary to determine the extent of debridement that may be needed. I will await surgical evaluation which has been ordered to make decision on the type of study to be done. If we cannot do MRI or CT scan, we may want to do a bone scan to determine whether there is indeed osteomyelitis present. Bon Mclean MD Jan 15, 2018 13:04
--- NOTE | 2018-01-15 14:40 | PD.CONS ---
Consult Service Palliative Care Consult Requested By Dr. Carter Primary Care Physician Unknown Reason for Consultation a. To assist with evaluation and management of symptoms including: Dyspnea, pain b. To assist medical decision maker(s) with: better understanding of current medical conditions; weighing benefits/burdens of medical treatment options; making medical treatment decisions. (Ann Ababsi) HPI History of Present Illness This 87-year-old patient presented to the ED 01/13/18 via EMS for infected surgical wound. Patient with known history of squamous cell carcinoma and having previous surgeries on the right side of his face. Patient reports last surgery over one year ago. Patient with home health wound care nurse evaluations noting drainage from the ear and recommended he presented to the ED for possible infection. Patient does not know if wound drainage is new. 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 * ED course: CT brain obtained to rule out possible osteomyelitis --patient was unable to lie supine secondary to shortness of breath from his COPD.. Patient administered. Vancomycin, Zosyn. Blood cultures obtained. WBC unremarkable and 0.7. ESR elevated greater than 140, CRP 14. Patient was admitted for 23 observation, hospitalist and plastics consulted. ID consulted. Right ear noted with necrosis, dehiscence-- ? Metastasis versus osteomyelitis. Patient noted to be a poor historian. 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 * Plastic surgery consulted: Patient reports long-standing wound right ear. " very large ulcerated lesion which has largely replaced his right auricle and clinically invades to bone. The patient would benefit from a CT to better delineate the degree of invasion, though by clinical exam, any attempt at resection would likely leave the patient with a very large wound which would exceed the locoregional options for coverage. Unclear if patient is a candidate for resection without further workup, though would recommend considering referral to a head and neck surgeon/ENT for evaluation given the likely invasion of the patient's temporal bone." * Infectious disease consulted: ID notes likely osteomyelitis, fungating wound likely osteomyelitis with erosion into temporal bone. Patient started on piperacillin/tazobactam. will need MRI of the ear and surgery evaluation for possible debridement. If cannot obtain MRI or CT may consider bone scan to determine if osteomyelitis is present. 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 Patient with no vertigo hearing intact. Curative procedures not reasonable. Would need academic center evaluation for temporal bone resection. In light of his other medical comorbidities including severe COPD not clear he could complete this workup. Recommends consider palliative therapy. Adjust limited debridement of detached are local by plastic surgery and radiation oncology evaluation for palliative radiation. Want to go to an academic treatment center. He will consider palliative radiation. Unfortunately has little else to offer. * 01/15/18 palliative care consulted to assist with clarification of goals of treatment. Oncology, radiation oncology consultations pending. Wound culture positive Pseudomonas and Proteus species. Patient refusing Zosyn to ID reporting causing diarrhea though nursing reports no diarrhea. ID changed to cefepime. Spoke with patient about necessity of continuing antibiotics to minimize infection spread. Pt seen in room, dual visit w Dawson Ramirez MSW palliative SW. He is alert, mostly oriented, though difficult to fully assess as he becomes with ongoing questions and also become short of breath indicates he doesn't like to talk much. He appears to have some insight into hospital course acknowledging he is supposed to be evaluated for radiation and he is hopeful will do some type of surgery to "remove the rest of his ear ". he does not have any local family though does indicate a daughter in [place] whom he does not know the last name of. Indicates he has a close friend and healthcare surrogate who he entrusts his medical affairs with if needed. Attempt to explore ROS, he becomes more irritable w questions, c/o chronic SOB 2/2 to COPD he doesn't want to talk more. When asked what prompted his presentation to the hospital he tells me his ear is falling off, though he cannot tell me how long it has been as bad as it is. following exam, call to friend/HCS Remy Gonzalez. *Discussed with medical attending . Function/Cognitive Trajectory Patient lives in an Apartment alone. Has home health care nurses visiting. Has had rehabilitation in the past following hospitalizations.Primarily homebound due to dyspnea and weakness and choice. Does not ever want to leave his home or local community. Friends and neighbors assist with grocery shopping. Uses an electronic scooter around his home, otherwise able to walk short distances from room to room. (Ann Abbasi) Review of Systems ROS Limitations: Uncooperative Constitutional: COMPLAINS OF: Change in appetite (decreased over the past several weeks per friend), Generalized weakness, DENIES: Pain Eyes: COMPLAINS OF: Vision loss (rt eye 2/2 cancer) Ears, nose, mouth, throat: DENIES: Hearing loss Respiratory: COMPLAINS OF: Shortness of breath Cardiovascular: COMPLAINS OF: Orthopnea Gastrointestinal: DENIES: Abdominal pain (Ann Abbasi) Past Family Social History Coded Allergies: No Known Allergies (Verified Allergy, Unknown, 01/13/18) Past Medical History COPD Hyperlipidemia Hypertension Aortic aneurysm Squamous cell carcinoma 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 Right fifth metacarpal fracture . Past Surgical History Right facial squamous cell carcinoma excision with facial reconstruction/ multiple procedures 2012 (right eye, nose, mouth) Unknown abdominal surgery as a [age] year old Left cataract surgery . Reported Medications Combivent Respimat Inh (Ipratropium-Albuterol Inh) 20-100 Prison/Act Aero 1 Puff INH QID Simvastatin 40 Mg Tab 40 Mg PO HS Lisinopril 20 Mg Tab 20 Mg PO DAILY . Current Medications Medications (Trade) Dose Ordered Sig/Joya Route Start Time Stop Time Status Last Admin (Spiriva Inh) 18 mcg DAILY INH 01/13/18 15:45 01/15/18 09:00 (Pravachol) 80 mg HS PO 01/13/18 21:00 01/14/18 21:00 (NS Flush) 2 ml UNSCH PRN IV FLUSH 01/13/18 15:30 (NS Flush) 2 ml BID IV FLUSH 01/13/18 21:00 01/15/18 09:00 (Narcan Inj) 0.4 mg UNSCH PRN IV PUSH 01/13/18 15:30 (Rubi-Colace) 1 tab BID PO 01/13/18 21:00 01/13/18 21:31 (Milk Of Magnesia Liq) 30 ml Q12H PRN PO 01/13/18 15:30 (Senokot) 17.2 mg Q12H PRN PO 01/13/18 15:30 (Dulcolax Supp) 10 mg DAILY PRN RECTAL 01/13/18 15:30 (Proair Hfa Inh) 2 puff QID INH 01/13/18 18:00 01/15/18 13:00 (Heparin Inj) 5,000 units Q8HR SQ 01/13/18 22:00 01/13/18 21:37 (Catapres) 0.1 mg Q6H PRN PO 01/13/18 16:15 (Tylenol) 650 mg Q4H PRN PO 01/13/18 16:15 (Zofran Inj) 4 mg Q6H PRN IV PUSH 01/13/18 16:15 01/15/18 01:00 (Duoneb Neb) 1 ampule Q6HR NEB PRN NEB 01/14/18 09:15 Cefepime HCl 1000 mg/Sodium Chloride 100 ml @ 200 mls/hr Q24H IV 01/15/18 15:00 Family History Per EMR no family history of cancer. . Substance Use Tobacco: Quit smoking 4-5 years ago, previously 1 PPD 60 years Alcohol: None Prescription med abuse: None Illicits: None . Psychosocial History [employer] . Lives alone. Lived here in [place] for most of his life. Primarily supported by several neighbors who are his close friends. He has a stepdaughter/[id number] who lives in [place] whom he remained somewhat in communication with. . [employer] , served in [employer]. Primarily homebound due to dyspnea and weakness and choice. Does not ever want to leave his home or local community. Friends and neighbors assist with grocery shopping. Uses an electronic scooter around his home, otherwise able to walk short distances from room to room. (Ann Abbasi) Health Care Surrogate: Completed, but not made available Durable Power of Cage Tender: Completed, but not made available Ethical and Legal Issues Patient indicates his friend Remy is designated as HCS. He may be capacitated at this time though difficult to fully assess as he does not fully participate with questions for exam. His friend Remy indicates that he is generally cognitively sharp. Remy Gonzalez indicates that he is the patient's healthcare surrogate and power of senior trial attorney he will bring copies of documents. (Ann Abbais) Physical Exam Vital Signs Date Time Temp Pulse Resp B/P (MAP) Pulse Ox O2 Delivery O2 Flow Rate FiO2 01/15/18 12:00 97.0 75 16 131/61 (84) 96 01/15/18 11:38 95 01/15/18 08:00 96.4 80 17 130/60 (83) 95 01/15/18 00:00 97.7 84 16 130/62 (84) 95 01/14/18 20:00 96.9 82 16 134/64 (87) 95 01/14/18 16:00 97.6 82 19 131/63 (85) 96 01/15/18 01/16/18 19:00 07:00 Intake Total 0 ml Balance 0 ml IV Total 0 ml Exam CONSTITUTIONAL/GENERAL: This is an adequately nourished patient, visibly short of breath with conversation, uses inhaler during discussion, large wound to right ear TUBES/LINES/DRAINS: Peripheral IV upper extremity, nasal cannula tubing in place SKIN: No jaundice, rashes, or lesions. Skin the bilateral lower extremities thickened, darkened. Otherwise skin dark, chronic sun exposure changes. Fungating wound right ear region very little tissue left of right ear, necrotic tissue still attached to lower ear region by a very small area of skin. + beige drainage.+ Unable to visualize right eye significant tissue deformity, significant scarring to right I region right side of face right cheek. Skin warm/dry HEAD: see above, skin notation, otherwise Atraumatic EYES: Left eye Extraocular motions intact. No scleral icterus. No injection or drainage. Fundi not examined. ENT: Hard of hearing. Nose without bleeding or purulent drainage. CARDIOVASCULAR: Regular rate and rhythm, no murmur. Peripheral pulses symmetric. Chronic thickening, darkening of skin the bilateral lower legs. RESPIRATORY/CHEST: Symmetric, unlabored respirations. Becomes dyspneic with conversation, mildly tachypneic with ongoing conversation. Clear to auscultation, decreased air movement. GASTROINTESTINAL: Abdomen soft, round, non-tender, nondistended. No hepato- splenomegaly, or palpable masses. No guarding. Bowel sounds normoactive. MUSCULOSKELETAL: Extremities without clubbing, cyanosis, or edema. Chronic skin thickening, darkening to lower legs. NEUROLOGICAL: Awake and alert. Mostly oriented though difficult to fully assess as he is uncooperative with answering all questions. Moves All 4 extremities. He follows commands. Appears to have some reasonable insight. PSYCHIATRIC: Mildly anxious with ongoing questions, mildly short of breath. (Ann Abbasi) Diagnostic Tests Laboratory Laboratory Tests Test 01/13/18 12:30 01/14/18 12:47 01/15/18 07:19 White Blood Count 9.7 TH/MM3 (4.0-11.0) 10.0 TH/MM3 (4.0-11.0) Red Blood Count 3.35 MIL/MM3 (4.50-5.90) 3.35 MIL/MM3 (4.50-5.90) Hemoglobin 10.3 GM/DL (13.0-17.0) 10.1 GM/DL (13.0-17.0) Hematocrit 30.5 % (39.0-51.0) 30.4 % (39.0-51.0) Mean Corpuscular Volume 91.2 FL (80.0-100.0) 90.9 FL (80.0-100.0) Mean Corpuscular Hemoglobin 30.7 PG (27.0-34.0) 30.2 PG (27.0-34.0) Mean Corpuscular Hemoglobin Concent 33.6 % (32.0-36.0) 33.2 % (32.0-36.0) Red Cell Distribution Width 13.6 % (11.6-17.2) 13.5 % (11.6-17.2) Platelet Count 435 TH/MM3 (150-450) 476 TH/MM3 (150-450) Mean Platelet Volume 7.5 FL (7.0-11.0) 7.6 FL (7.0-11.0) Neutrophils (%) (Auto) 80.5 % (16.0-70.0) 79.6 % (16.0-70.0) Lymphocytes (%) (Auto) 11.0 % (9.0-44.0) 12.9 % (9.0-44.0) Monocytes (%) (Auto) 7.8 % (0.0-8.0) 6.0 % (0.0-8.0) Eosinophils (%) (Auto) 0.4 % (0.0-4.0) 0.8 % (0.0-4.0) Basophils (%) (Auto) 0.3 % (0.0-2.0) 0.7 % (0.0-2.0) Neutrophils # (Auto) 7.8 TH/MM3 (1.8-7.7) 7.9 TH/MM3 (1.8-7.7) Lymphocytes # (Auto) 1.1 TH/MM3 (1.0-4.8) 1.3 TH/MM3 (1.0-4.8) Monocytes # (Auto) 0.8 TH/MM3 (0-0.9) 0.6 TH/MM3 (0-0.9) Eosinophils # (Auto) 0.0 TH/MM3 (0-0.4) 0.1 TH/MM3 (0-0.4) Basophils # (Auto) 0.0 TH/MM3 (0-0.2) 0.1 TH/MM3 (0-0.2) CBC Comment DIFF FINAL DIFF FINAL Differential Comment Erythrocyte Sedimentation Rate GREATER THAN 140 mm/hr GREATER THAN 140 mm/hr Blood Urea Nitrogen 27 MG/DL (7-18) 26 MG/DL (7-18) 30 MG/DL (7-18) Creatinine 2.39 MG/DL (0.60-1.30) 2.22 MG/DL (0.60-1.30) 2.49 MG/DL (0.60-1.30) Random Glucose 103 MG/DL (74-106) 107 MG/DL (74-106) 98 MG/DL (74-106) Total Protein 7.8 GM/DL (6.4-8.2) Albumin 2.4 GM/DL (3.4-5.0) Calcium Level 8.8 MG/DL (8.5-10.1) 9.2 MG/DL (8.5-10.1) 9.1 MG/DL (8.5-10.1) Alkaline Phosphatase 101 U/L (45-117) Aspartate Amino Transf (AST/SGOT) 17 U/L (15-37) Alanine Aminotransferase (ALT/SGPT) 21 U/L (12-78) Total Bilirubin 0.5 MG/DL (0.2-1.0) Sodium Level 141 MEQ/L (136-145) 142 MEQ/L (136-145) 144 MEQ/L (136-145) Potassium Level 3.9 MEQ/L (3.5-5.1) 4.4 MEQ/L (3.5-5.1) 4.4 MEQ/L (3.5-5.1) Chloride Level 111 MEQ/L (98-107) 110 MEQ/L (98-107) 112 MEQ/L (98-107) Carbon Dioxide Level 21.6 MEQ/L (21.0-32.0) 24.0 MEQ/L (21.0-32.0) 24.2 MEQ/L (21.0-32.0) Anion Gap 8 MEQ/L (5-15) 8 MEQ/L (5-15) 8 MEQ/L (5-15) Estimat Glomerular Filtration Rate 26 ML/MIN (>89) 28 ML/MIN (>89) 25 ML/MIN (>89) Lactic Acid Level 1.3 mmol/L (0.4-2.0) C-Reactive Protein 14.00 MG/DL (0.00-0.30) 15.00 MG/DL (0.00-0.30) Iron Level 39 MCG/DL (65-175) Total Iron Binding Capacity 162 MCG/DL (250-450) Percent Iron Saturation 24.0 % (20-50) Ferritin 703 NG/ML (26-388) (Ann Abbasi) Result Diagram: 01/14/18 1247 01/15/18 0719 Microbiology Microbiology Date/Time Source Procedure Growth Status 01/13/18 12:35 Blood Peripheral Aerobic Blood Culture - Preliminary NO GROWTH IN 2 DAYS Resulted 01/13/18 12:35 Blood Peripheral Anaerobic Blood Culture - Preliminary NO GROWTH IN 2 DAYS Resulted 01/13/18 12:30 Blood Peripheral Aerobic Blood Culture - Preliminary NO GROWTH IN 2 DAYS Resulted 01/13/18 12:30 Blood Peripheral Anaerobic Blood Culture - Preliminary NO GROWTH IN 2 DAYS Resulted 01/13/18 15:30 Wound Other Gram Stain - Final Resulted 01/13/18 15:30 Wound Culture - Preliminary Pseudomonas Species Proteus Species Resulted (Ann Abbasi) Patient/Family Conference Family Conference Location: Bedside, Telephone Issues Discussed: Limited discussion with patient at bedside see history of present illness for details. Following exam call to patient and friend Remy, discussion included the following: * Palliative care role, purpose, approach * Review of medical, psychosocial, history * Review of Patients general health, functional status, and cognitive changes in the months leading up to the current hospitalization * Prognosis; review of consultations pending and likely limited treatment options going forward * Patients goals of care as best understood from advance directives and/or conversations and/or values * Legal decision makers/healthcare surrogate * Likely scenarios comparing ongoing aggressive care with a transition to comfort measures only-brief review of hospice services for patients with advanced or end-stage conditions not desiring ongoing aggressive interventions or for which there are no further interventions available. * Questions answered to the best of my ability * Palliative care contact information provided Remy indicates he has known the patient for 10+ years as a neighbor and close friend. Other neighbors assist the patient in his home as needed. He indicates the patient is usually cognitively sharp he is just not a big talker and at times is " curmudgeonly" . He tells me the patient generally does not like to leave his home or local area and that he will not want to seek aggressive treatments outside of this local region. Patient generally keeps to himself and does not like to trouble or bother others. He will follow along with patient clinical course to assist patient with decision making as needed. He generally comes between 2 and 4 PM. He endorses agreement that the patient would not want to seek further treatment at a tertiary center. 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 (4) COPD (chronic obstructive pulmonary disease) (5) Chronic kidney disease (6) Hypertension (7) Hyperlipidemia Symptom Scale: (1) Dyspnea 0-10 Scale: Unable to quantify Pertinent Non-Medical Issues Psychosocial:[employer] . Lives alone. Lived here in [place] for most of his life. Primarily supported by several neighbors who are his close friends. He has a stepdaughter/[id number]-ww-zhf who lives in [place] whom he remained somewhat in communication with. . [employer] , served in [place]. Primarily homebound due to dyspnea and weakness and choice. Does not ever want to leave his home or local community. Friends and neighbors assist with grocery shopping. Uses an electronic scooter around his home, otherwise able to walk short distances from room to room. Spiritual: Legal:Patient indicates his friend Remy is designated as HCS. He may be capacitated at this time though difficult to fully assess as he does not fully participate with questions for exam. His friend Remy indicates that he is generally cognitively sharp. Remy Gonzalez indicates that he is the patient's healthcare surrogate and power of senior trial attorney he will bring copies of documents. Ethical issues impacting care: No ethical issues identified. Important Contacts Remy Gonzalez, neighbor close friend reported healthcare surrogate and POA [id number] Jocelyne [place] . Prognosis This patient was admitted for further evaluation of significant wound to right ear, probable squamous cell carcinoma is patient with extensive history right face of squamous cell carcinoma. Curative procedures not reasonable recommended per ENT, patient with underlying severe COPD not likely a good candidate for invasive procedures. Radiation Oncology consultation pending. Patient recommended for palliative treatment. . Code Status: No Code Plan * Legal decision maker:Patient indicates his friend Remy is designated as HCS. He may be capacitated at this time though difficult to fully assess as he does not fully participate with questions for exam. His friend Remy indicates that he is generally cognitively sharp. Remy Gonzalez indicates that he is the patient's healthcare surrogate and power of senior trial attorney he will bring copies of documents. * Goals: Patient wishes to proceed with radiation oncology evaluation, and surgical removal of remaining ear tissue if possible. He does not wish to seek care at other facilities. He appears to be mostly oriented and probably capacitated though I have limited ability to assess this as he is somewhat uncooperative with questioning. I spoke with his friend and reported healthcare surrogate Remy. Remy indicates he has known the patient for 10+ years as a neighbor and close friend. Other neighbors assist the patient in his home as needed. He indicates the patient is usually cognitively sharp he is just not a big talker and at times is " curmudgeonly" . He tells me the patient generally does not like to leave his home or local area and that he will not want to seek aggressive treatments outside of this local region. Patient generally keeps to himself and does not like to trouble or bother others. He will follow along with patient clinical course to assist patient with decision making as needed. He generally comes between 2 and 4 PM. He endorses agreement that the patient would not want to seek further treatment at a tertiary center. * *Could consider psychiatry evaluation to further assess capacity to make medical decisions though again it appears he may be able to just is unwilling to cooperate with examination questions * CODE STATUS: DNR * SYMPTOMS: --Shortness of breath-chronic COPD. Patient sleeps in a recliner. Unable to tolerate lying flat for CT imaging. On O2 during hospitalization. Using inhaler prn-- endorses feeling more short of breath with conversation or stress ; endorses good relief with inhaler does not desire nebulizers. Continue to evaluate symptoms --Pain-patient denies pain though it appears as if fungating wound to right ear region could be a significant source of pain. Continue to evaluate. Palliative care will continue to follow during hospital course as condition evolves, to assist patient/decision-maker with understanding of medical conditions, weighing benefits/burdens of treatment options, for clarification of goals of treatment. Additionally will assist with any symptoms of palliative concern (Ann Abbasi) Thank you for the opportunity to participate in the care of Mr. Garrido. (Ann Abbasi) Attestation To help prompt me to consider important information that might be impacting today's encounter and assessment, information from prior notes written by myself or my colleagues may have been "brought forward" into today's note. My signature on this note, however, is an attestation that I personally performed the exam, history, and/or decision-making noted today, and, unless otherwise indicated, the interactions with patient, family, and staff as well as the review of records all occurred today. I also attest that the listed assessment and stated plan reflect my best clinical judgment today based on the combination of historical information, prior notes, and today's exam/ interactions. When time spent is documented, it refers only to time spent today by the signer, or if indicated, combined time spent today by collaborating physician/nurse practitioner. (Ann Abbasi) Collaborating MD Comments Chart reviewed. Case discussed with palliative care RFID ANALYST. Above MARGUERITE note reviewed and I concur. . (Alex Andre MD) Ann Abbasi Jan 15, 2018 14:40 Alex Andre MD Jan 23, 2018 17:01
[2018-01-15] MEDS ORDERED: CEFEPIME INJ 1,000 MG in SODIUM CHLORIDE 0.9% INJ 100 ML IV SCH (15:00)
[2018-01-15 16:00] VITALS: BP 132/60; PULSE 77; RESP 19; TEMP 96.4; O2SAT 96
[2018-01-15] MEDS ORDERED: ZOLPIDEM TARTRATE 5 MG TAB PO PRN (18:00)
[2018-01-15 20:00] VITALS: BP 107/54; PULSE 73; RESP 16; TEMP 96; O2SAT 92
[2018-01-15] MEDS: PRAVASTATIN SOD 80 MG TAB PO SCH (20:33)
[2018-01-16] VITALS: BP 128/51; PULSE 75; RESP 16; TEMP 97.1; O2SAT 93
[2018-01-16] MEDS: HEPARIN SODIUM - SQ 10,000 UNITS/ML VIAL SQ SCH ×3 (05:20→19:30)
[2018-01-16 06:43] LABS: BASOPHIL # 0.1 TH/MM3 (0-0.2); BASOPHIL % 0.7 % (0.0-2.0); EOSINOPHIL # 0.1 TH/MM3 (0-0.4); EOSINOPHIL % 1.2 % (0.0-4.0); HEMATOCRIT 29.7 % (39.0-51.0); HEMOGLOBIN 9.9 GM/DL (13.0-17.0); LYMPH % 16.7 % (9.0-44.0); LYMPHOCYTE # 1.6 TH/MM3 (1.0-4.8); MEAN CELL VOLUME 92.2 FL (80.0-100.0); MEAN CORPUSCULAR HEMOGLOBIN 30.7 PG (27.0-34.0); MEAN CORPUSCULAR HGB CONC 33.3 % (32.0-36.0); MEAN PLATELET VOLUME 7.7 FL (7.0-11.0); MONO % 8.2 % (0.0-8.0); MONOCYTE # 0.8 TH/MM3 (0-0.9); NEUT % 73.2 % (16.0-70.0); PLATELET COUNT 441 TH/MM3 (150-450); RED BLOOD COUNT 3.22 MIL/MM3 (4.50-5.90); RED CELL DISTRIBUTION WIDTH 13.7 % (11.6-17.2); WHITE BLOOD COUNT 9.6 TH/MM3 (4.0-11.0)
[2018-01-16 07:06] LABS: ALBUMIN 2.4 GM/DL (3.4-5.0); AST (GOT) 33 U/L (15-37); BICARBONATE 24.8 MEQ/L (21.0-32.0); BLOOD UREA NITROGEN 31 MG/DL (7-18); CALCIUM 9.3 MG/DL (8.5-10.1); CHLORIDE 109 MEQ/L (98-107); CREATININE 2.62 MG/DL (0.60-1.30); GLOMERULAR FILTRATION RATE 23 ML/MIN (>89); GLUCOSE,RANDOM 92 MG/DL (74-106); MAGNESIUM 2.4 MG/DL (1.5-2.5); SODIUM (NA) 142 MEQ/L (136-145)
[2018-01-16 07:07] LABS: ALT (GPT) 38 U/L (12-78)
[2018-01-16 07:09] LABS: ALKALINE PHOSPHATASE 103 U/L (45-117); PHOSPHORUS 3.5 MG/DL (2.5-4.9); TOTAL BILIRUBIN ADULT 0.5 MG/DL (0.2-1.0); TOTAL PROTEIN 7.8 GM/DL (6.4-8.2)
[2018-01-16] MEDS: ALBUTEROL SULFATE 90 MCG/ACT HFA 8 GM INHALER INH SCH ×4 (07:50→21:00)
[2018-01-16] MEDS: TIOTROPIUM BROMIDE 18 MCG INH INH SCH ×2 (07:50→20:00)
[2018-01-16] MEDS: SODIUM CHLORIDE 0.9% FLUSH 10 ML FLUSH IV FLUSH SCH ×2 (07:52→21:00)
[2018-01-16] MEDS: DOCUSATE SODIUM 50 MG/SENNA 8.6 MG TAB PO SCH ×2 (07:52→19:30)
[2018-01-16 08:00] VITALS: BP 138/67; PULSE 96; RESP 16; TEMP 98.4; O2SAT 98
[2018-01-16 12:00] VITALS: BP 119/53; PULSE 72; RESP 16; TEMP 96.8; O2SAT 97
--- NOTE | 2018-01-16 12:38 | HHI.IDPN ---
Note Infectious Disease Note Patient says he feels okay. He denies pain in the R. ear. No fever. RN reports no diarrhea. Wound culture has pseudomonas and proteus sensitive to Levaquin. Patient wants to have outpatient radiation therapy. Patient presented to the emergency department with a wound on his right ear. 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 He had reconstruction of the right side of the face and skin grafting involving the face and part of the nose. He had to have a second surgery in 2012. The prior surgery was in 2011. The patient states that he saw a blasting worker sometime ago who did a biopsy of his right ear. He states that he did not get the results and did not have follow-up arrangements made for the ear. He is a poor historian. PAST MEDICAL HISTORY 1. COPD. 2. Hyperlipidemia. 3. Hypertension. 4. Aortic aneurysm. 5. History of facial reconstruction for squamous cell carcinoma in 2012. ALLERGIES No known drug allergies. MEDICATIONS Current Medications Medications (Trade) Dose Ordered Sig/Joya Route PRN Reason Start Time Stop Time Status Last Admin Dose Admin Tiotropium [place] (Spiriva Inh) 18 mcg DAILY INH 01/13/18 15:45 01/16/18 07:50 Pravastatin Sodium (Pravachol) 80 mg HS PO 01/13/18 21:00 01/15/18 20:33 Sodium Chloride (NS Flush) 2 ml UNSCH PRN IV FLUSH FLUSH AFTER USING IV ACCESS 01/13/18 15:30 Sodium Chloride (NS Flush) 2 ml BID IV FLUSH 01/13/18 21:00 01/16/18 07:52 Naloxone HCl (Narcan Inj) 0.4 mg UNSCH PRN IV PUSH SEE LABEL COMMENTS 01/13/18 15:30 Senna/Docusate Sodium (Rubi-Colace) 1 tab BID PO 01/13/18 21:00 01/13/18 21:31 Magnesium Hydroxide (Milk Of Magnesia Liq) 30 ml Q12H PRN PO Mild constipation 01/13/18 15:30 Sennosides (Senokot) 17.2 mg Q12H PRN PO Moderate constipation 01/13/18 15:30 Bisacodyl (Dulcolax Supp) 10 mg DAILY PRN RECTAL SEVERE CONSITIPATION 01/13/18 15:30 Albuterol Sulfate (Proair Hfa Inh) 2 puff QID INH 01/13/18 18:00 01/16/18 07:50 Heparin Sodium (Porcine) (Heparin Inj) 5,000 units Q8HR SQ 01/13/18 22:00 01/13/18 21:37 Clonidine (Catapres) 0.1 mg Q6H PRN PO SBP>180, DBP>100, HR>65 01/13/18 16:15 Acetaminophen (Tylenol) 650 mg Q4H PRN PO Temp > 100.4 or headache 01/13/18 16:15 Ondansetron HCl (Zofran Inj) 4 mg Q6H PRN IV PUSH NAUSEA 01/13/18 16:15 01/15/18 01:00 Albuterol/ Ipratropium (Duoneb Neb) 1 ampule Q6HR NEB PRN NEB SHORTNESS OF BREATH/WHEEZING 01/14/18 09:15 Cefepime HCl 1000 mg/Sodium Chloride 100 ml @ 200 mls/hr Q24H IV 01/15/18 15:00 01/15/18 15:38 Zolpidem Tartrate (Ambien) 5 mg HS PRN PO INSOMNIA 01/15/18 18:00 01/15/18 20:33 OBJECTIVE: Vital Signs Date Time Temp Pulse Resp B/P (MAP) Pulse Ox O2 Delivery O2 Flow Rate FiO2 01/16/18 12:00 96.8 72 16 119/53 (75) 97 01/16/18 08:00 98.4 96 16 138/67 (90) 98 01/16/18 00:00 97.1 75 16 128/51 (76) 93 01/15/18 20:00 96.0 73 16 107/54 (71) 92 01/15/18 16:00 96.4 77 19 132/60 (84) 96 Laboratory Tests Test 01/14/18 12:47 01/16/18 05:32 White Blood Count 10.0 TH/MM3 9.6 TH/MM3 Red Blood Count 3.35 MIL/MM3 3.22 MIL/MM3 Hemoglobin 10.1 GM/DL 9.9 GM/DL Hematocrit 30.4 % 29.7 % Mean Corpuscular Volume 90.9 FL 92.2 FL Mean Corpuscular Hemoglobin 30.2 PG 30.7 PG Mean Corpuscular Hemoglobin Concent 33.2 % 33.3 % Red Cell Distribution Width 13.5 % 13.7 % Platelet Count 476 TH/MM3 441 TH/MM3 Mean Platelet Volume 7.6 FL 7.7 FL Neutrophils (%) (Auto) 79.6 % 73.2 % Lymphocytes (%) (Auto) 12.9 % 16.7 % Monocytes (%) (Auto) 6.0 % 8.2 % Eosinophils (%) (Auto) 0.8 % 1.2 % Basophils (%) (Auto) 0.7 % 0.7 % Neutrophils # (Auto) 7.9 TH/MM3 7.0 TH/MM3 Lymphocytes # (Auto) 1.3 TH/MM3 1.6 TH/MM3 Monocytes # (Auto) 0.6 TH/MM3 0.8 TH/MM3 Eosinophils # (Auto) 0.1 TH/MM3 0.1 TH/MM3 Basophils # (Auto) 0.1 TH/MM3 0.1 TH/MM3 CBC Comment DIFF FINAL DIFF FINAL Differential Comment Erythrocyte Sedimentation Rate GREATER THAN 140 mm/hr PHYSICAL EXAMINATION GENERAL: No acute distress. He is awake and alert and oriented. HEENT: The right ear is macerated and has murky exudate centrally. The lobe of the ear has torn to some degree and is hanging from the base of the ear. The ear has a fungating appearance. The right eye has a skin graft causing the right eye not to open. The left eye is intact and the extraocular movements of the left eye are intact. Oropharynx with moist mucosa. NECK: No adenopathy or swelling. LUNGS: Clear to auscultation. HEART: Regular S1, S2, without murmurs, rubs or gallops. ABDOMEN: Bowel sounds present. Mildly distended, soft, no tenderness appreciated. EXTREMITIES: No clubbing, cyanosis or edema. SKIN: Warm and dry. NEUROLOGIC: No gross focal findings. PSYCHIATRIC: Calm and cooperative. IMPRESSION 1. Right ear infection likely with osteomyelitis. Patient with prior surgery of the right cheek, now with fungating wound which likely represents osteomyelitis with erosion into the temporal bone area. Wound culture has pseudomonas and proteus species. 2. Acute kidney disease. 3. 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 The appearance of the changes in the right ear could also be related to the carcinoma extending. RECOMMENDATIONS Change antibiotic to Levaquin 250 mg PO daily x 2 weeks. Decision can be made about further antibiotics after completion of the Levaquin by referring patient to outpatient ID physician. Okay to discharge from my standpoint. Bon Mclean MD Jan 16, 2018 12:38
[2018-01-16] MEDS: LEVOFLOXACIN 250 MG TAB PO SCH (13:26)
[2018-01-16 16:00] VITALS: BP 134/73; PULSE 94; RESP 18; TEMP 96.6; O2SAT 99
--- NOTE | 2018-01-16 16:12 | HHI.HCPN ---
Reason for visit a. To assist with evaluation and management of symptoms including: Dyspnea, pain b. To assist medical decision maker(s) with: better understanding of current medical conditions; weighing benefits/burdens of medical treatment options; making medical treatment decisions. (Ann Abbasi) Subjective/Interval History Pt seen to follow up on goals, nursing contacted palliative requested follow up as pt wanting to be d/c. Pt stable. ID following, changed antibiotics to oral, ok to D/c per ID. oncology consultation pending, I'm informed by staff patient to be seen this afternoon/evening by radiation oncology. CBC and chemistry unremarkable no significant change from patient's previous. *Discussed with medical attending, nurse Patient seen in room present. Alert, pleasant oriented and cooperative. He remembers me from yesterday. He tells me he is having a much better day today. Indicates that he is ready to be discharged if he can be cleared, he tells me he can make transportation arrangements to come back to the hospital to receive radiation. Advised that radiation oncologist consultation is pending and I am not certain at this time what treatments were held manually any that radiation oncologist offered, and what benefit he would gain from those treatments. Advise that I recommend he stay in the hospital to complete radiation oncology consultation otherwise he may have difficulty securing an outpatient appointment for this. He is amenable to this, he just hopes to get discharged as soon as possible to return to his previous status at home. He also indicates if the remaining loose tissue suspended from his ear could be removed he would like that, if can be done without invasive procedure. She endorses his breathing feels much better today, denies dyspnea. Says he primarily gets short of breath with activity. Endorses fair to good appetite. Feeling well overall. Denies any pain. Gently explore with him that extensive wound and process could be related to underlying cancer history, and he could certainly experience disease progression in worsening of his clinical condition and/or additional symptoms. Gently explore with him that should he experience clinical decline , and symptoms of discomfort then hospice would be an option. He indicates that he knows about hospice and he would probably want that over returning to the hospital. He tells me for now he would [facility], but that if he should get worse or would require another hospitalization he would probably want hospice. He also does not feel like he is at end-of-life or dying right now. . (Ann Abbasi) Advance Directives Health Care Surrogate: Completed, but not made available Durable Power of Manager Engine: Completed, but not made available (Ann Abbasi) Objective Vital Signs Date Time Temp Pulse Resp B/P (MAP) Pulse Ox O2 Delivery O2 Flow Rate FiO2 01/16/18 12:00 96.8 72 16 119/53 (75) 97 01/16/18 08:00 98.4 96 16 138/67 (90) 98 01/16/18 00:00 97.1 75 16 128/51 (76) 93 01/15/18 20:00 96.0 73 16 107/54 (71) 92 Intake & Output 01/16/18 01/16/18 07:00 19:00 Output Total 400 ml Balance -400 ml Output Urine Total 400 ml Physical Exam CONSTITUTIONAL/GENERAL: This is an adequately nourished patient, visibly short of breath with conversation, uses inhaler during discussion, large wound to right ear TUBES/LINES/DRAINS: Peripheral IV upper extremity, nasal cannula tubing in place SKIN: No jaundice, rashes, or lesions. Skin the bilateral lower extremities thickened, darkened. Otherwise skin dark, chronic sun exposure changes. Fungating wound right ear region very little tissue left of right ear, necrotic tissue still attached to lower ear region by a very small area of skin. + beige drainage.+ Unable to visualize right eye significant tissue deformity, significant scarring to right I region right side of face right cheek. Skin warm/dry HEAD: see above, skin notation, otherwise Atraumatic EYES: Left eye Extraocular motions intact. No scleral icterus. No injection or drainage. Fundi not examined. ENT: Hard of hearing. Nose without bleeding or purulent drainage. CARDIOVASCULAR: Regular rate and rhythm, no murmur. Peripheral pulses symmetric. Chronic thickening, darkening of skin the bilateral lower legs. RESPIRATORY/CHEST: Symmetric, unlabored respirations. Becomes dyspneic with conversation, mildly tachypneic with ongoing conversation. Clear to auscultation, decreased air movement. GASTROINTESTINAL: Abdomen soft, round, non-tender, nondistended. No hepato- splenomegaly, or palpable masses. No guarding. Bowel sounds normoactive. MUSCULOSKELETAL: Extremities without clubbing, cyanosis, or edema. Chronic skin thickening, darkening to lower legs. NEUROLOGICAL: Awake and alert. Mostly oriented though difficult to fully assess as he is uncooperative with answering all questions. Moves All 4 extremities. He follows commands. Appears to have some reasonable insight. PSYCHIATRIC: Mildly anxious with ongoing questions, mildly short of breath. (Ann Abbasi) Diagnostic Tests Laboratory Laboratory Tests Test 01/14/18 12:47 01/15/18 07:19 01/16/18 05:32 White Blood Count 10.0 TH/MM3 (4.0-11.0) 9.6 TH/MM3 (4.0-11.0) Red Blood Count 3.35 MIL/MM3 (4.50-5.90) 3.22 MIL/MM3 (4.50-5.90) Hemoglobin 10.1 GM/DL (13.0-17.0) 9.9 GM/DL (13.0-17.0) Hematocrit 30.4 % (39.0-51.0) 29.7 % (39.0-51.0) Mean Corpuscular Volume 90.9 FL (80.0-100.0) 92.2 FL (80.0-100.0) Mean Corpuscular Hemoglobin 30.2 PG (27.0-34.0) 30.7 PG (27.0-34.0) Mean Corpuscular Hemoglobin Concent 33.2 % (32.0-36.0) 33.3 % (32.0-36.0) Red Cell Distribution Width 13.5 % (11.6-17.2) 13.7 % (11.6-17.2) Platelet Count 476 TH/MM3 (150-450) 441 TH/MM3 (150-450) Mean Platelet Volume 7.6 FL (7.0-11.0) 7.7 FL (7.0-11.0) Neutrophils (%) (Auto) 79.6 % (16.0-70.0) 73.2 % (16.0-70.0) Lymphocytes (%) (Auto) 12.9 % (9.0-44.0) 16.7 % (9.0-44.0) Monocytes (%) (Auto) 6.0 % (0.0-8.0) 8.2 % (0.0-8.0) Eosinophils (%) (Auto) 0.8 % (0.0-4.0) 1.2 % (0.0-4.0) Basophils (%) (Auto) 0.7 % (0.0-2.0) 0.7 % (0.0-2.0) Neutrophils # (Auto) 7.9 TH/MM3 (1.8-7.7) 7.0 TH/MM3 (1.8-7.7) Lymphocytes # (Auto) 1.3 TH/MM3 (1.0-4.8) 1.6 TH/MM3 (1.0-4.8) Monocytes # (Auto) 0.6 TH/MM3 (0-0.9) 0.8 TH/MM3 (0-0.9) Eosinophils # (Auto) 0.1 TH/MM3 (0-0.4) 0.1 TH/MM3 (0-0.4) Basophils # (Auto) 0.1 TH/MM3 (0-0.2) 0.1 TH/MM3 (0-0.2) CBC Comment DIFF FINAL DIFF FINAL Differential Comment Erythrocyte Sedimentation Rate GREATER THAN 140 mm/hr Blood Urea Nitrogen 26 MG/DL (7-18) 30 MG/DL (7-18) 31 MG/DL (7-18) Creatinine 2.22 MG/DL (0.60-1.30) 2.49 MG/DL (0.60-1.30) 2.62 MG/DL (0.60-1.30) Random Glucose 107 MG/DL (74-106) 98 MG/DL (74-106) 92 MG/DL (74-106) Calcium Level 9.2 MG/DL (8.5-10.1) 9.1 MG/DL (8.5-10.1) 9.3 MG/DL (8.5-10.1) Sodium Level 142 MEQ/L (136-145) 144 MEQ/L (136-145) 142 MEQ/L (136-145) Potassium Level 4.4 MEQ/L (3.5-5.1) 4.4 MEQ/L (3.5-5.1) 4.1 MEQ/L (3.5-5.1) Chloride Level 110 MEQ/L (98-107) 112 MEQ/L (98-107) 109 MEQ/L (98-107) Carbon Dioxide Level 24.0 MEQ/L (21.0-32.0) 24.2 MEQ/L (21.0-32.0) 24.8 MEQ/L (21.0-32.0) Anion Gap 8 MEQ/L (5-15) 8 MEQ/L (5-15) 8 MEQ/L (5-15) Estimat Glomerular Filtration Rate 28 ML/MIN (>89) 25 ML/MIN (>89) 23 ML/MIN (>89) Iron Level 39 MCG/DL (65-175) Total Iron Binding Capacity 162 MCG/DL (250-450) Percent Iron Saturation 24.0 % (20-50) Ferritin 703 NG/ML (26-388) C-Reactive Protein 15.00 MG/DL (0.00-0.30) Total Protein 7.8 GM/DL (6.4-8.2) Albumin 2.4 GM/DL (3.4-5.0) Phosphorus Level 3.5 MG/DL (2.5-4.9) Magnesium Level 2.4 MG/DL (1.5-2.5) Alkaline Phosphatase 103 U/L (45-117) Aspartate Amino Transf (AST/SGOT) 33 U/L (15-37) Alanine Aminotransferase (ALT/SGPT) 38 U/L (12-78) Total Bilirubin 0.5 MG/DL (0.2-1.0) (Ann Abbasi) Result Diagram: 01/16/1832 01/16/1832 Assessment and Plan Disease Oriented Problem List: (1) Squamous cell carcinoma of skin of cheek (2) Necrosis of right external ear (3) Squamous cell carcinoma of right ear Comment: probable . (4) COPD (chronic obstructive pulmonary disease) (5) Chronic kidney disease (6) Hypertension (7) Hyperlipidemia Symptom Scale: (1) Dyspnea 0-10 Scale: Unable to quantify Pertinent Non-Medical Issues Psychosocial:[employer] . Lives alone. Lived here in [place] for most of his life. Primarily supported by several neighbors who are his close friends. He has a stepdaughter/brtztnsr-jn-zog who lives in [place] whom he remained somewhat in communication with. . [employer] , served in [place]. Primarily homebound due to dyspnea and weakness and choice. Does not ever want to leave his home or local community. Friends and neighbors assist with grocery shopping. Uses an electronic scooter around his home, otherwise able to walk short distances from room to room. Spiritual: Legal:Patient indicates his friend Remy is designated as HCS. He may be capacitated at this time though difficult to fully assess as he does not fully participate with questions for exam. His friend Remy indicates that he is generally cognitively sharp. Remy Gonzalez indicates that he is the patient's healthcare surrogate and power of commercial attorney he will bring copies of documents. Ethical issues impacting care: No ethical issues identified. Important Contacts Remy Gonzalez, neighbor close friend reported healthcare surrogate and POA [phone] [id number] [place]oc[place]ne [place] . Prognosis This patient was admitted for further evaluation of significant wound to right ear, probable squamous cell carcinoma is patient with extensive history right face of squamous cell carcinoma. Curative procedures not reasonable recommended per ENT, patient with underlying severe COPD not likely a good candidate for invasive procedures. Radiation Oncology consultation pending. Patient recommended for palliative treatment. . Code Status: No Code Plan * Legal decision maker:Patient indicates his friend Remy is designated as HCS. He may be capacitated at this time though difficult to fully assess as he does not fully participate with questions for exam. His friend Remy indicates that he is generally cognitively sharp. Remy Gonzalez indicates that he is the patient's healthcare surrogate and power of commercial attorney he will bring copies of documents. * Goals: Patient wishes to proceed with radiation oncology evaluation, and surgical removal of remaining ear tissue if possible. He appears to have reasonable understanding in situ conditions. He wants to get out of the hospital as soon as reasonably possible. He is amenable to staying to complete radiation oncology evaluation for possible recommendations. He wants to resume home health care services from the [facility] which he had prior to this admission. He indicates that if he experienced additional symptoms or clinical decline from this probable malignant process he would probably want hospice at that time, though does not feel he needs hospice services currently. * CODE STATUS: DNR * SYMPTOMS: --Shortness of breath-chronic COPD. Patient sleeps in a recliner. Unable to tolerate lying flat for CT imaging. On O2 during hospitalization. Today on room air, breathing comfortably, denies dyspnea Using inhaler prn-- yesterday with significant shortness of breath with conversation. Continue to evaluate symptoms --Pain-patient denies pain though it appears as if fungating wound to right ear region could be a significant source of pain. Continue to evaluate. Palliative care will continue to follow during hospital course as condition evolves, to assist patient/decision-maker with understanding of medical conditions, weighing benefits/burdens of treatment options, for clarification of goals of treatment. Additionally will assist with any symptoms of palliative concern (Ann Abbasi) Attestation To help prompt me to consider important information that might be impacting today's encounter and assessment, information from prior notes written by myself or my colleagues may have been "brought forward" into today's note. My signature on this note, however, is an attestation that I personally performed the exam, history, and/or decision-making noted today, and, unless otherwise indicated, the interactions with patient, family, and staff as well as the review of records all occurred today. I also attest that the listed assessment and stated plan reflect my best clinical judgment today based on the combination of historical information, prior notes, and today's exam/ interactions. When time spent is documented, it refers only to time spent today by the signer, or if indicated, combined time spent today by collaborating physician/nurse practitioner. (Ann Abbasi) Collaborating MD Comments Chart reviewed. Case discussed with palliative care VIRTUALIZATION ARCHITECT. Above VIRTUALIZATION ARCHITECT note reviewed and I concur. . (Alex Andre MD) Ann Abbasi Jan 16, 2018 16:12 Alex Andre MD Jan 23, 2018 17:13
--- NOTE | 2018-01-16 16:44 | HHI.PR ---
Subjective Remarks Creatinine trending up. Patient denies fevers or chills. Objective Vitals Vital Signs Date Time Temp Pulse Resp B/P (MAP) Pulse Ox O2 Delivery O2 Flow Rate FiO2 01/16/18 12:00 96.8 72 16 119/53 (75) 97 01/16/18 08:00 98.4 96 16 138/67 (90) 98 01/16/18 00:00 97.1 75 16 128/51 (76) 93 01/15/18 20:00 96.0 73 16 107/54 (71) 92 I/O 01/15/18 01/15/18 01/15/18 01/16/18 01/16/18 01/16/18 07:00 15:00 23:00 07:00 15:00 23:00 Intake Total 50 ml 0 ml 720 ml Output Total 400 ml 375 ml 400 ml Balance -350 ml 0 ml 345 ml -400 ml Intake Oral 720 ml IV Total 50 ml 0 ml Output Urine Total 400 ml 375 ml 400 ml # Voids 1 # Bowel Movements 1 2 Result Diagram: 01/16/18 0532 01/16/18 0532 Objective Remarks GENERAL: male sitting up comfortably in bed in [facility]. SKIN: Warm and dry. HEENT: Significant seborrhea of scalp and face. Deformed right half of his face due to prior surgeries. Large, pedunculated fleshy mass overlying right orbit. Part of nose and mouth surgically absent. Right ear grossly deformed and dehisced with foul-smelling exudate coming from the tympanic canal. No scleral icterus. No injection or drainage. Nose without bleeding, purulent drainage or septal hematoma. NECK: Supple no tender LAD or JVD. HEART: RRR no m/r/g. LUNGS: CTAB without wheezes or crackles. ABDOMEN: Soft, NT, ND. EXTREMITIES: No LE edema or calf tenderness. NEURO: Awake and alert. PSYCH: Appropriate mood and affect. Medications and IVs Current Medications Medications (Trade) Dose Ordered Sig/Joya Route Start Time Stop Time Status Last Admin (Spiriva Inh) 18 mcg DAILY INH 01/13/18 15:45 01/16/18 07:50 (Pravachol) 80 mg HS PO 01/13/18 21:00 01/15/18 20:33 (NS Flush) 2 ml UNSCH PRN IV FLUSH 01/13/18 15:30 (NS Flush) 2 ml BID IV FLUSH 01/13/18 21:00 01/16/18 07:52 (Narcan Inj) 0.4 mg UNSCH PRN IV PUSH 01/13/18 15:30 (Rubi-Colace) 1 tab BID PO 01/13/18 21:00 01/13/18 21:31 (Milk Of Magnesia Liq) 30 ml Q12H PRN PO 01/13/18 15:30 (Senokot) 17.2 mg Q12H PRN PO 01/13/18 15:30 (Dulcolax Supp) 10 mg DAILY PRN RECTAL 01/13/18 15:30 (Proair Hfa Inh) 2 puff QID INH 01/13/18 18:00 01/16/18 13:00 (Heparin Inj) 5,000 units Q8HR SQ 01/13/18 22:00 01/13/18 21:37 (Catapres) 0.1 mg Q6H PRN PO 01/13/18 16:15 (Tylenol) 650 mg Q4H PRN PO 01/13/18 16:15 (Zofran Inj) 4 mg Q6H PRN IV PUSH 01/13/18 16:15 01/15/18 01:00 (Duoneb Neb) 1 ampule Q6HR NEB PRN NEB 01/14/18 09:15 (Ambien) 5 mg HS PRN PO 01/15/18 18:00 01/15/18 20:33 (Levaquin) 250 mg DAILY PO 01/16/18 13:00 01/16/18 13:26 A/P Problem List: (1) Infection of right ear ICD Code: H66.91 - Otitis media, unspecified, right ear (2) Necrosis of right external ear ICD Code: I96 - Gangrene, not elsewhere classified (3) Chronic kidney disease ICD Code: N18.9 - Chronic kidney disease, unspecified Status: Chronic (4) Anemia ICD Code: D64.9 - Anemia, unspecified (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 Infection of right ear with necrosis Likely secondary to invasive skin cancer that has been untreated for years Concern for merna involvement and possible osteomyelitis given purulent, foul- smelling drainage and proximity to mastoid, ossicles, etc. CT head attempted but patient with significant dyspnea when supine due to COPD ( even with supplemental oxygen) ESR markedly elevated >140 and CRP 14 No leukocytosis and not septic IV Vanc and Zosyn x 1 given in the ED 01/15 Sed rate elevated and greater than 140. Consulted. Recommended IV vancomycin and IV Zosyn. Will also order a CT of the right temporal bone. The degree of invasion as per plastic surgery recommendations. Plastic surgery any attempt at resection would likely leave the patient with a very large wound which would exceed the local regional options for coverage. Wound cultures growing Pseudomonas and Proteus. Follow-up sensitivities and ID recommendations. Blood cultures negative 2. ENT consulted. As per ENT accurate the procedure is not a reasonable consideration at this point. The patient would need to go to an academic center for evaluation for temporal bone resection. Palliative therapy and limited debridement of the detached auricle plastic surgery also recommended. Will consult radiation oncology for palliative radiation. Patient refuses to go to an academic center. Will consider palliative radiation. 01/16 appreciate palliative care consultation recommendations. The patient wishes to pursue radiation therapy if possible. Radiation oncology consulted and consultation is still pending. Medical oncology consult still pending. COPD Not in acute exacerbation Supplemental O2 PRN Continue home Symbicort DuoNeb PRN 01/16 Patient states cant lye down due to sob. Will start patient on IV Solumedrol, Duoneb nebulizer and Symbicort. HTN Hold home Lisinopril secondary to renal disease Clonidine PRN Monitor pressures - if necessary can add a CCB CKD Baseline creatinine ~1.5 but that was back in 2013 so unsure if this is progressing chronic or acute on chronic Avoid nephrotoxic agents Monitor renal function 01/16 creatinine seems to be trending up. I will place the patient on gentle IV fluids and continue to monitor creatinine. Anemia Normocytic, no active bleeding and hemodynamically stable Likely secondary to CKD Iron studies ordered iron studies consistent with anemia of chronic disease. Continue to monitor hemoglobin. HLD Resume home statin DVT prophylaxis Heparin 5000 units Q8H Hold if invasive procedure anticipated FEN Regular diet Monitor electrolytes Discharge Planning Continue to monitor on the medical floor. Medical oncology, radiation oncology and palliative care consultations placed. Problem Qualifiers (1) Anemia: Qualified Codes: D64.9 - Anemia, unspecified Danyel Bonner MD Jan 16, 2018 16:43
[2018-01-16] MEDS: SODIUM CHLOR 0.9% 1000 ML INJ 1,000 ML IV SCH (16:45)
[2018-01-16] MEDS: methylPREDNISolone SOD SUCC 40 MG/1 ML VIAL IV PUSH SCH ×2 (18:38→22:00)
[2018-01-16 20:00] VITALS: BP 158/68; PULSE 77; RESP 19; TEMP 96.9; O2SAT 96
[2018-01-16] MEDS: RESP: ALBUTEROL 2.5 MG/IPRATROPIUM 0.5 MG NEB (SCH) NEB (20:00)
[2018-01-16] MEDS: PRAVASTATIN SOD 80 MG TAB PO SCH (21:00)
[2018-01-17] VITALS: BP 150/68; PULSE 78; RESP 18; TEMP 96.1; O2SAT 96
[2018-01-17] MEDS: SODIUM CHLOR 0.9% 1000 ML INJ 1,000 ML IV SCH (02:28)
[2018-01-17 04:00] VITALS: BP 134/69; PULSE 79; RESP 18; TEMP 96.6; O2SAT 94
[2018-01-17] MEDS: HEPARIN SODIUM - SQ 10,000 UNITS/ML VIAL SQ SCH (06:00)
[2018-01-17] MEDS: methylPREDNISolone SOD SUCC 40 MG/1 ML VIAL IV PUSH SCH (06:00)
[2018-01-17 08:00] VITALS: BP 124/66; PULSE 80; RESP 18; TEMP 96.9; O2SAT 94
[2018-01-17] MEDS: RESP: ALBUTEROL 2.5 MG/IPRATROPIUM 0.5 MG NEB (SCH) NEB (08:00)
--- NOTE | 2018-01-17 08:00 | MB ---
cc: WANDY GUO MD DATE OF CONSULTATION 01/16/2018 DATE OF 1930 CHIEF COMPLAINT Right ear squamous cell carcinoma, right ear wound and surgical infection. HISTORY OF PRESENT ILLNESS Mr. Garrido is an 87-year-old gentleman with a past history of past skin cancer, COPD, hyperlipidemia, hypertension who presented to the emergency room as instructed by his PCP at the CT for evaluation of worsening right ear wound. Per report, over the past several years he has had [id number] surgeries by Dr. Morales for facial reconstruction after excising a squamous cell that involved his right eye and part of his nose and mouth. Shortly after the surgery, he had biopsy of the lesion on his ear, but never followed up. Since he has been an inpatient plastic surgery team has been consulted and recommended CT scan, but did not think that he would be a good candidate for resection without further workup. ID team consulted, feels that he likely has an osteomyelitis. He is on Zosyn therapy and also recommended further imaging for further evaluation. ENT service also consulted who recommended radiation consult for palliative radiation. Also felt that he would be a good candidate for further evaluation in an [facility] which the patient declined. Palliative care team has also been consulted on this patient. The patient was initially seen on Sunday evening, however he declined to speak to me and physical exam at that time the case he was too tired to talk. He was seen again on 01/16. He reports that he would like to pursue further treatment including treatment of infection as well as radiation therapy. From his discussion, it appears that he has a poor grasp of his past medical history, as well as a poor grasp of his current situation including extent of the infection and extent of the disease. LABORATORY STUDIES Show a white blood cell count of 9.6, hemoglobin of 9.9, an MCV of 92.2 and a platelet count of 441,000. He has an elevated ESR and he has a normal differential that is present. Further laboratory studies show a sodium of 142, potassium of 4.2, creatinine is elevated at 2.62 with an EGFR of 23. LFTs within normal limits. He has a low albumin that is present. He also has an elevated CRP. REVIEW OF SYSTEMS CONSTITUTIONAL: Fatigue. EYES: Right eye vision loss. EARS: Right ear infection. RESPIRATORY: Cough. All other review of systems negative. PAST MEDICAL HISTORY 1. COPD 2. Hyperlipidemia 3. Hypertension PAST SURGICAL HISTORY Right facial squamous cell carcinoma excision with reconstruction in 2012. MEDICATIONS Medications include: 1. COPD inhalers 2. Simvastatin 3. Lisinopril ALLERGIES No known drug allergies. FAMILY HISTORY No family history of skin cancer. SOCIAL HISTORY The patient lives alone. Reports he has friends who are his support system. He has a daughter who lives in this area, former smoker. PHYSICAL EXAMINATION GENERAL: A frail man in no distress. Multiple age spots and SK on skin exam ENT: Past surgery on right-side of face. EYES: Swollen right eyelid and decreased ability to move this eyelid. NECK: Right-sided lymphadenopathy present. CARDIOVASCULAR: Regular rate and rhythm. No murmurs. RESPIRATORY: Clear to auscultation bilaterally. GI: Soft, nontender, nondistended, bowel sounds present. MUSCULOSKELETAL: Full range of motion. NEUROLOGIC: Grossly nonfocal. PSYCH: Poor recent and long-term memory. ASSESSMENT/PLAN 1. What appears to be a right ear squamous cell carcinoma that is invasive with a superficial infection from past wound. Agree with current broad-spectrum antibiotic therapy. Do agree that he would need to have further imaging prior to any treatment. At this point in time due to frail status, do not think that he would be a candidate for concurrent chemotherapy and radiation therapy. Would advised to get radiation oncology on board for consideration of palliative radiation therapy. I do agree with palliative care consult and input at this time. 2. Anemia with elevated markers of inflammation including ESR and CRP. [place] this is likely anemia of inflammation/anemia of chronic disease. Could consider checking iron profile, ferritin, B12, folate and S-PEP with immunofixation for further evaluation. Inpatient hematology service will continue to follow. MD ANNIE Julien/TAZ /6:43 AM /7:40 AM DINH
[2018-01-17] MEDS: LEVOFLOXACIN 250 MG TAB PO SCH (08:53)
[2018-01-17] MEDS: DOCUSATE SODIUM 50 MG/SENNA 8.6 MG TAB PO SCH (08:53)
[2018-01-17] MEDS: TIOTROPIUM BROMIDE 18 MCG INH INH SCH ×2 (09:00→10:59)
[2018-01-17] MEDS: SODIUM CHLORIDE 0.9% FLUSH 10 ML FLUSH IV FLUSH SCH (09:00)
[2018-01-17] MEDS: ALBUTEROL SULFATE 90 MCG/ACT HFA 8 GM INHALER INH SCH (09:00)
[2018-01-17 12:00] VITALS: BP 117/54; PULSE 86; RESP 19; TEMP 96.4; O2SAT 93
--- NOTE | 2018-01-19 20:51 | RC ---
cc: BEBO ASH DATE OF SERVICE: 01/16/2018. INITIAL EVALUATION Mr. Garrido is an 87-year-old male with squamous cell cancer diagnosed in the past. We were able to obtain outside pathology. We discussed external beam radiation therapy. He is interested in following with us as an outpatient to discuss treatment considerations. I will schedule reevaluation in one week. He is agreeable to this and did request to see us an outpatient. He was seen this evening. Bebo Ash MD Radiation Oncologist [facility]/DANICA /6:37 PM /8:45 PM
== END 2018-01-17 12:43 | disposition left against medical advice (07) | DRG 540 ==
LOC: NEPD 12:19 → NEDA 15:01 → N07A 16:19
PROVIDERS: ADMIT Hospitalist; ATTEND Hospitalist
DX: M86.8X8 Other osteomyelitis, other site (principal); I96 Gangrene, not elsewhere classified; J44.9 Chronic obstructive pulmonary disease, unspecified; B96.5 Pseudomonas (aeruginosa) (mallei) (pseudomallei) as the cause of diseases classified elsewhere; C44.222 Squamous cell carcinoma of skin of right ear and external auricular canal; I12.9 Hypertensive chronic kidney disease with stage 1 through stage 4 chronic kidney disease, or unspecified chronic kidney disease; B96.4 Proteus (mirabilis) (morganii) as the cause of diseases classified elsewhere; C44.329 Squamous cell carcinoma of skin of other parts of face; H60.391 Other infective otitis externa, right ear; L82.1 Other seborrheic keratosis; L57.0 Actinic keratosis; E78.5 Hyperlipidemia, unspecified; D63.1 Anemia in chronic kidney disease; N18.9 Chronic kidney disease, unspecified; H91.90 Unspecified hearing loss, unspecified ear; H54.61 Unqualified visual loss, right eye, normal vision left eye; Z66 Do not resuscitate; Z85.828 Personal history of other malignant neoplasm of skin; Z87.891 Personal history of nicotine dependence
CPT/HCPCS: 80048; 80053; 82728; 83540; 83550; 83605; 83735; 84100; 85025; 85652; 86140; 87040; 87070; 87077; 87186; 87205; 96365; 96367; J0692; J1644; J2405; J2543; J2920; J3370; J7030; J7050